=== PATIENT | female | born 1950 | race African-American/Black ===

== ENCOUNTER 2016-06-09 02:44 | Emergency (ER) | payer MEDICARE, MEDICAID ==
[~2016-06-09] VITALS: Ht 154.9 cm; Wt 68.0 kg
[2016-06-09 02:47] VITALS: BP 147/84; PULSE 74; RESP 16; TEMP 98.3; O2SAT 100
[2016-06-09 04:20] LABS: AUTOMATED NEUTROPHIL # 5.3 TH/MM3 (1.8-7.7); BASOPHIL % 0.4 % (0.0-2.0); EOSINOPHIL # 0.1 TH/MM3 (0-0.4); EOSINOPHIL % 0.8 % (0.0-4.0); HEMATOCRIT 39.2 % (35.0-46.0); HEMO FLAGS DIFF FINAL; LYMPH % 27.7 % (9.0-44.0); LYMPHOCYTE # 2.3 TH/MM3 (1.0-4.8); MEAN CELL VOLUME 77.4 FL (80.0-100.0); MEAN CORPUSCULAR HEMOGLOBIN 26.1 PG (27.0-34.0); MEAN CORPUSCULAR HGB CONC 33.8 % (32.0-36.0); MONO % 7.7 % (0.0-8.0); NEUT % 63.4 % (16.0-70.0); PLATELET COUNT 225 TH/MM3 (150-450); RED BLOOD COUNT 5.07 MIL/MM3 (4.00-5.30); RED CELL DISTRIBUTION WIDTH 15.3 % (11.6-17.2); WHITE BLOOD COUNT 8.4 TH/MM3 (4.0-11.0)
--- NOTE | 2016-06-09 04:20 | PD ---
HPI Chief Complaint: Syncope/Near-Syncope Time Seen by Provider: 04:06 Travel History International Travel<30 days: No Contact w/Intl Traveler<30days: No Traveled to known affect area: No History of Present Illness HPI The patient is a 66 year old female who presents to the [facility] emergency department with a history of reportedly having lightheaded sensation with near syncopal events 5 throughout the day today. She denies having any chest pain, chest pressure, or shortness of breath. She denies hitting her head or losing consciousness that she is aware of. She denies having any new extremity pain, however she reports that she does have right thigh pain related to a fall 3 weeks ago. She reports that she was evaluated for this and prescribed ibuprofen. The patient reports that she recently moved to the area from [place]. She has not established with a new primary care doctor. The patient reports that over the last few days with weather changes she has had a dry cough. She denies any other congestion. She also reports that over the last 2 days she's had diarrhea 2-3 times per day. She denies any blood in her stool or black or tarry stools. The patient denies any recent fevers, neck pain, chest pain, shortness of breath, abdominal pain, vomiting, urinary symptoms, or neurologic symptoms. [facility] Past Medical History Narrative Medical The patient's past medical history is significant for hypertension, recent history of a fall 3 weeks ago with right leg pain. ?: Not Past Surgical History Narrative Surgical The patient's past surgical history is reportedly none. Social History Alcohol Use: No Tobacco Use: No Substance Use: No Allergies-Medications (Allergen,Severity, Reaction): Coded Allergies: No Known Allergies (Unverified , 06/09/16) Reported Meds & Prescriptions Reported Meds & Active Scripts Active No Active Prescriptions or Reported Medications Narrative Medication Ibuprofen when necessary Review of Systems Except as stated in HPI: all other systems reviewed are Neg General / Constitutional: No: Fever Eyes: No: Visual changes HENT: Positive: Lightheadedness, No: Headaches Cardiovascular: Positive: Syncope, No: Chest Pain or Discomfort, Dyspnea on exertion Respiratory: Positive: Cough, No: Shortness of Breath Gastrointestinal: Positive: Diarrhea, Changes in Bowel Habits, No: Nausea, Vomiting, Abdominal Pain Genitourinary: No: Dysuria Musculoskeletal: Positive: Myalgias, Pain Skin: No Rash Neurologic: No: Weakness, Focal Abnormalities, Change in Mentation, Slurred Speech, Sensory Disturbance Psychiatric: No: Depression Endocrine: No: Polydipsia Hematologic/Lymphatic: No: Easy Bruising Physical Exam Narrative General: The patient is a well-developed well-nourished female in no acute distress. Head and Neck exam: Head is normocephalic atraumatic. Eyes: Pupils are equal round and reactive to light. Nose: Midline septum with pink mucous membranes Mouth: Dentition unremarkable. Moist mucus membranes. Posterior oropharynx is not erythematous. No tonsillar hypertrophy. Uvula midline. Airway patent. Neck: No palpable lymphadenopathy. No nuchal rigidity. No thyromegaly. Cardiovascular: Regular rate and rhythm without murmurs, gallops, or rubs. No pulse deficit to the extremities. Lungs: Clear to auscultation bilaterally. No wheezes, rhonchi, or rales. Abdomen: Soft, without tenderness to palpation in all 4 quadrants of the abdomen. No guarding, rebound, or rigidity. Normal bowel sounds are audible. Extremities: No clubbing or cyanosis. The patient has 1+ nonpitting edema bilateral lower extremities. No calf pain on palpation. The patient reports that her edema is chronic and unchanged. 2+ pulses in all 4 extremities. Back: No spinous process tenderness to palpation. No costovertebral angle tenderness to palpation. Neurologic Exam: Cranial nerves 2-12 were intact on exam. Strength is 5/5 in all 4 extremities. No sensory deficits noted. Skin Exam: No rash noted. Intact skin that is warm and dry. Data Data Last Documented VS Vital Signs Date Time Temp Pulse Resp B/P Pulse Ox O2 Delivery O2 Flow Rate FiO2 06/09/16 04:26 67 16 120/64 75 18 127/79 80 18 120/70 06/09/16 04:24 100 Room Air 06/09/16 02:47 98.3 Orders Electrocardiogram (06/09/16 03:08) Complete Blood Count With Diff (06/09/16 03:08) Comprehensive Metabolic Panel (06/09/16 03:08) Iv Access Insert/Monitor (06/09/16 03:08) Creatine Kinase (Cpk) (06/09/16 04:21) Ckmb (Isoenzyme) Profile (06/09/16 04:21) Troponin I (06/09/16 04:21) B-Type Natriuretic Peptide (06/09/16 04:21) D-Dimer (06/09/16 04:21) Chest, Single Ap (06/09/16 04:21) Ct Brain W/O Iv Contrast(Rout) (06/09/16 04:21) Ecg Monitoring (06/09/16 04:21) Oximetry (06/09/16 04:21) Orthostatic Vital Signs (06/09/16 04:21) Sodium Chlor 0.9% 1000 Ml Inj (Ns 1000 M (06/09/16 04:30) CKMB (06/09/16 03:45) CKMB% (06/09/16 03:45) Sodium Chlorid 0.9% 500 Ml Inj (Ns 500 M (06/09/16 06:00) Oral Rehydration (06/09/16 05:54) Labs Laboratory Tests Test 06/09/16 06/09/16 03:45 04:40 White Blood Count 8.4 TH/MM3 Red Blood Count 5.07 MIL/MM3 Hemoglobin 13.2 GM/DL Hematocrit 39.2 % Mean Corpuscular Volume 77.4 FL Mean Corpuscular Hemoglobin 26.1 PG Mean Corpuscular Hemoglobin 33.8 % Concent Red Cell Distribution Width 15.3 % Platelet Count 225 TH/MM3 Mean Platelet Volume 8.9 FL Neutrophils (%) (Auto) 63.4 % Lymphocytes (%) (Auto) 27.7 % Monocytes (%) (Auto) 7.7 % Eosinophils (%) (Auto) 0.8 % Basophils (%) (Auto) 0.4 % Neutrophils # (Auto) 5.3 TH/MM3 Lymphocytes # (Auto) 2.3 TH/MM3 Monocytes # (Auto) 0.6 TH/MM3 Eosinophils # (Auto) 0.1 TH/MM3 Basophils # (Auto) 0.0 TH/MM3 CBC Comment DIFF FINAL Differential Comment Sodium Level 139 MEQ/L Potassium Level 4.1 MEQ/L Chloride Level 102 MEQ/L Carbon Dioxide Level 27.5 MEQ/L Anion Gap 10 MEQ/L Blood Urea Nitrogen 23 MG/DL Creatinine 1.24 MG/DL Estimat Glomerular Filtration 53 ML/MIN Rate Random Glucose 91 MG/DL Calcium Level 9.2 MG/DL Total Bilirubin 0.6 MG/DL Aspartate Amino Transf 22 U/L (AST/SGOT) Alanine Aminotransferase 24 U/L (ALT/SGPT) Alkaline Phosphatase 87 U/L Total Creatine Kinase 154 U/L Creatine Kinase MB 2.9 NG/ML Troponin I LESS THAN 0.02 NG/ML Total Protein 8.5 GM/DL Albumin 3.6 GM/DL D-Dimer Quantitative (PE/DVT) 0.43 MG/L FEU B-Type Natriuretic Peptide 6 PG/ML MDM Medical Decision Making Medical Screen Exam Complete: Yes Emergency Medical Condition: Yes Medical Record Reviewed: Yes Interpretation(s) Last Impressions Head CT 06/09/16420 Signed Impressions: Service Date/Time: Thursday, June 09, 2016 05:22 - CONCLUSION: 1. No acute intracranial abnormality. 2. Minimal left sphenoid sinus disease. Marbin Dolan MD Chest X-Ray 06/09/16420 Signed Impressions: Service Date/Time: Thursday, June 09, 2016 04:32 - CONCLUSION: No acute disease. Marbin Dolan MD Differential Diagnosis Orthostasis, versus vasovagal syncope, versus dehydration, versus electrolyte abnormality, versus cardiac arrhythmia, versus pneumonia, versus sepsis Narrative Course During the course of the patients emergency department visit, the patients history, examination, and differential diagnosis were reviewed with the patient. The patient had IV access obtained and blood work sent for analysis. The patient was placed on a medication assistant with oximetry and blood pressure monitoring. An EKG was done. Orthostatic vital signs were collected. The patient was not orthostatic. The patient was provided normal saline 1 L IV fluid bolus. The patients laboratory studies were reviewed and remarkable for a white count of 8.4, hemoglobin 13.2, platelets 225 with a normal differential. CMP is remarkable for a BUN of 23, creatinine 1.24, CPK 154, troponin I less than 0.02 , BNP is 6, d-dimer is 0.438 decreased the likelihood of pulmonary embolism in this patient with no other significant risk factors. Radiology studies were reviewed and remarkable for a chest x-ray that is unremarkable. I suspect that the patient's lightheaded sensation is related to her recent diarrhea and under hydration. The patient was given an another fluid bolus of normal saline 500 mL. The patient was started on oral rehydration therapy. The patient will be discharged home. The patient is resting comfortably and feels better, is alert and in no distress. The patients results and examination findings were discussed with the patient. The repeat examination is unremarkable and benign. The history, exam, diagnostic testing, and current condition do not suggest any significant pathology to warrant further testing, continued ED treatment, admission, or surgical evaluation at this point. The vital signs have been stable. The patient does not have uncontrollable pain, intractable vomiting, or other significant symptoms. The patient's condition is stable and appropriate for discharge. The patient will pursue further outpatient evaluation with a primary care physician or other designated or consulting physician as indicated in the discharge instructions. The patient expressed understanding and was agreeable with this plan. Diagnosis Primary Impression: Dehydration Additional Impression: Diarrhea Qualified Code: R19.7 - Diarrhea, unspecified type Referrals: Belen Londono MD Patient Instructions: Acute Diarrhea (ED), Dehydration (ED), General Instructions Additional Instructions: The patient is instructed to push fluids and get plenty of rest. The patient is instructed to push fluids with an electrolyte rich solution such as Gatorade or Pedialyte. Scripts No Active Prescriptions or Reported Meds Disposition: 01 DISCHARGE HOME Condition: Stable Karli Rudolph MD Jun 09, 2016 04:20
[2016-06-09 04:24] VITALS: RESP 22; O2SAT 100
[2016-06-09 04:26] VITALS: BP_SYST 120; BP_SYST 127; BP_DIAS 64; BP_DIAS 70; BP_DIAS 79; RESP 16; RESP 18
[2016-06-09] MEDS ORDERED: SODIUM CHLOR 0.9% 1000 ML INJ 1,000 ML IV ONE (04:30)
[2016-06-09 04:43] LABS: ALKALINE PHOSPHATASE 87 U/L (45-117); TOTAL BILIRUBIN ADULT 0.6 MG/DL (0.2-1.0)
[2016-06-09 04:58] LABS: ALT (GPT) 24 U/L (10-53); ANION GAP 10 MEQ/L (5-15); AST (GOT) 22 U/L (15-37); BICARBONATE 27.5 MEQ/L (21.0-32.0); BLOOD UREA NITROGEN 23 MG/DL (7-18); CHLORIDE 102 MEQ/L (98-107); GLOMERULAR FILTRATION RATE 53 ML/MIN (>89); POTASSIUM 4.1 MEQ/L (3.5-5.1); SODIUM (NA) 139 MEQ/L (136-145)
[2016-06-09 05:40] LABS: CREATINE KINASE 154 U/L (26-192)
--- NOTE | 2016-06-09 05:40 | RADRPT ---
EXAM DATE/TIME: 06/09/2016 04:32 [facility] COMPARISON: No previous studies available for comparison. INDICATIONS : Syncope. MEDICAL HISTORY : None. SURGICAL HISTORY : None. ENCOUNTER: Initial ACUITY: 1 day PAIN SCORE: 0/10 LOCATION: Bilateral chest FINDINGS: A single view of the chest demonstrates the lungs to be symmetrically aerated without evidence of mas s, infiltrate or effusion. The cardiomediastinal contours are unremarkable. Osseous structures are intact. CONCLUSION: No acute disease. Marbin Dolan MD on June 09, 2016 at 5:38 Board Certified Radiologist. This report was verified electronically.
--- NOTE | 2016-06-09 05:47 | RADRPT ---
EXAM DATE/TIME: 06/09/2016 05:22 [facility] COMPARISON: No previous studies available for comparison. INDICATIONS : Syncopal episode RADIATION DOSE: 38.73 CTDIvol (mGy) MEDICAL HISTORY : None SURGICAL HISTORY : None. ENCOUNTER: Initial ACUITY: 1 day PAIN SCALE: 0/10 LOCATION: Bilateral cranial TECHNIQUE: Multiple contiguous axial images were obtained of the head. Using automated exposure control and adj ustment of the mA and/or kV according to patient size, radiation dose was kept as low as reasonably a chievable to obtain optimal diagnostic quality images. FINDINGS: CEREBRUM: The ventricles are normal for age. No evidence of midline shift, mass lesion, hemorrhage or acute in farction. No extra-axial fluid collections are seen. POSTERIOR FOSSA: The cerebellum and brainstem are intact. The 4th ventricle is midline. The cerebellopontine angle i s unremarkable. EXTRACRANIAL: The visualized portion of the orbits is intact. Minimal left sphenoid sinus disease. SKULL: The calvaria is intact. No evidence of skull fracture. CONCLUSION: 1. No acute intracranial abnormality. 2. Minimal left sphenoid sinus disease. Marbin Dolan MD on June 09, 2016 at 5:45 Board Certified Radiologist. This report was verified electronically.
[2016-06-09 05:53] LABS: CKMB 2.9 NG/ML (0.5-3.6)
[2016-06-09] MEDS ORDERED: SODIUM CHLORID 0.9% 500 ML INJ 500 ML IV ONE (06:00)
--- NOTE | 2016-06-09 11:12 | EKG ---
Date Performed: 06/09/2016 Time Performed: 04:19:06 PTAGE: 66 years EKG: Sinus rhythm NORMAL ECG NO PREVIOUS TRACING DOCTOR: Sean Vaughn Interpretating Date/Time 06/09/2016 11:09:41
== END 2016-06-09 08:43 | disposition home or self-care (01) ==
LOC: NEPE 02:44 → NEPD 08:43
DX: E86.0 Dehydration (principal); R19.7 Diarrhea, unspecified; R55 Syncope and collapse; M79.651 Pain in right thigh; R05 Cough; I10 Essential (primary) hypertension
CPT/HCPCS: 70450; 71010; 80053; 82550; 82552; 83880; 84484; 85025; 85379; 93005; 96360; 96361; 99284; J7030; J7040

== ENCOUNTER 2017-05-05 10:36 | Emergency (ER) | payer MEDICARE, OTHER ==
[~2017-05-05] VITALS: Ht 154.9 cm; Wt 70.0 kg
[2017-05-05 10:37] VITALS: BP 125/74; PULSE 81; RESP 16; TEMP 98.4; O2SAT 93
--- NOTE | 2017-05-05 10:51 | PD ---
HPI Chief Complaint: Anxiety Time Seen by Provider: 10:49 Travel History International Travel<30 days: No Contact w/Intl Traveler<30days: No Traveled to known affect area: No History of Present Illness HPI 67-year-old female patient presents to the ER today, states that she has had a in the family of 70 close to her recently, and since then has been having anxiety, feeling depressed, having suicidal thoughts. She does not have exact plans. She denies any other issues, just states that she is not feeling well, feels like she cannot concentrate at times. She is requesting psychiatric evaluation. Modifying Factors: None Associated Signs & Symptoms: Anxiety, depression, suicidal thoughts Risk Factors: None PFSH Past Medical History Immunizations Current: Yes ?: Not Social History Alcohol Use: No Tobacco Use: No Substance Use: No Allergies-Medications (Allergen,Severity, Reaction): Coded Allergies: No Known Allergies (Unverified Adverse Reaction, Unknown, 05/05/17) Reported Meds & Prescriptions Reported Meds & Active Scripts Active No Active Prescriptions or Reported Medications Review of Systems Except as stated in HPI: all other systems reviewed are Neg Physical Exam Narrative GENERAL: Well-developed elderly -[place] female patient currently in mild distress. Awake and oriented 3. SKIN: Focused skin assessment warm/dry. HEAD: Atraumatic. Normocephalic. EYES: Pupils equal and round. No scleral icterus. No injection or drainage. ENT: No nasal bleeding or discharge. Mucous membranes pink and moist. NECK: Trachea midline. No JVD. CARDIOVASCULAR: Regular rate and rhythm. No murmur appreciated. RESPIRATORY: No accessory muscle use. Clear to auscultation. Breath sounds equal bilaterally. GASTROINTESTINAL: Abdomen soft, non-tender, nondistended. Hepatic and splenic margins not palpable. MUSCULOSKELETAL: No obvious deformities. No clubbing. No cyanosis. No edema. NEUROLOGICAL: Awake and alert. No obvious cranial nerve deficits. Motor grossly within normal limits. Normal speech. PSYCHIATRIC: Appropriate mood and flat affect; insight and judgment normal. Data Data Last Documented VS Vital Signs Date Time Temp Pulse Resp B/P (MAP) Pulse Ox O2 Delivery O2 Flow Rate FiO2 05/05/17 10:55 78 16 101/66 (78) 99 Room Air 05/05/17 10:37 98.4 Orders Orders Complete Blood Count With Diff (05/05/17 10:45) Comprehensive Metabolic Panel (05/05/17 10:45) Psych Screen (05/05/17 10:45) Drug Screen, Random Urine (05/05/17 10:45) Alcohol (Ethanol) (05/05/17 10:45) Potassium Chloride (Kcl) (05/05/17 12:30) Labs Laboratory Tests Test 05/05/17 10:58 White Blood Count 6.7 TH/MM3 Red Blood Count 4.97 MIL/MM3 Hemoglobin 12.8 GM/DL Hematocrit 40.1 % Mean Corpuscular Volume 80.8 FL Mean Corpuscular Hemoglobin 25.9 PG Mean Corpuscular Hemoglobin Concent 32.0 % Red Cell Distribution Width 14.7 % Platelet Count 204 TH/MM3 Mean Platelet Volume 8.9 FL Neutrophils (%) (Auto) 76.7 % Lymphocytes (%) (Auto) 17.8 % Monocytes (%) (Auto) 4.9 % Eosinophils (%) (Auto) 0.5 % Basophils (%) (Auto) 0.1 % Neutrophils # (Auto) 5.1 TH/MM3 Lymphocytes # (Auto) 1.2 TH/MM3 Monocytes # (Auto) 0.3 TH/MM3 Eosinophils # (Auto) 0.0 TH/MM3 Basophils # (Auto) 0.0 TH/MM3 CBC Comment DIFF FINAL Differential Comment Blood Urea Nitrogen 12 MG/DL Creatinine 0.97 MG/DL Random Glucose 130 MG/DL Total Protein 7.2 GM/DL Albumin 3.0 GM/DL Calcium Level 8.4 MG/DL Alkaline Phosphatase 69 U/L Aspartate Amino Transf (AST/SGOT) 18 U/L Alanine Aminotransferase (ALT/SGPT) 19 U/L Total Bilirubin 0.6 MG/DL Sodium Level 141 MEQ/L Potassium Level 3.1 MEQ/L Chloride Level 108 MEQ/L Carbon Dioxide Level 23.1 MEQ/L Anion Gap 10 MEQ/L Estimat Glomerular Filtration Rate 70 ML/MIN Urine Opiates Screen NEG Urine Barbiturates Screen NEG Urine Amphetamines Screen NEG Urine Benzodiazepines Screen NEG Urine Cocaine Screen NEG Urine Cannabinoids Screen NEG Ethyl Alcohol Level LESS THAN 3 MG/DL MDM Medical Decision Making Medical Screen Exam Complete: Yes Emergency Medical Condition: Yes Medical Record Reviewed: Yes Interpretation(s) Laboratory Tests Test 05/05/17 10:58 Mean Corpuscular Hemoglobin 25.9 PG (27.0-34.0) Neutrophils (%) (Auto) 76.7 % (16.0-70.0) Random Glucose 130 MG/DL (74-106) Albumin 3.0 GM/DL (3.4-5.0) Calcium Level 8.4 MG/DL (8.5-10.1) Potassium Level 3.1 MEQ/L (3.5-5.1) Chloride Level 108 MEQ/L (98-107) Estimat Glomerular Filtration Rate 70 ML/MIN (>89) Differential Diagnosis Depression, anxiety, suicidal ideation, evaluation for medical clearance Narrative Course Lab work shows mild decrease in potassium and by mouth potassium was given in the ER. Vital signs are stable in the ER. My plan would be to medically clear her for psychiatric evaluation. Diagnosis Primary Impression: Depression with suicidal ideation Additional Impression: Hypokalemia Scripts No Active Prescriptions or Reported Meds Condition: Stable Alcides Dillard MD May 05, 2017 10:51
[2017-05-05 10:55] VITALS: BP 101/66; PULSE 78; RESP 16; O2SAT 99
[2017-05-05 11:50] LABS: AUTOMATED NEUTROPHIL # 5.1 TH/MM3 (1.8-7.7); BASOPHIL % 0.1 % (0.0-2.0); EOSINOPHIL % 0.5 % (0.0-4.0); HEMATOCRIT 40.1 % (35.0-46.0); HEMO FLAGS DIFF FINAL; LYMPH % 17.8 % (9.0-44.0); LYMPHOCYTE # 1.2 TH/MM3 (1.0-4.8); MEAN CELL VOLUME 80.8 FL (80.0-100.0); MEAN CORPUSCULAR HEMOGLOBIN 25.9 PG (27.0-34.0); MONO % 4.9 % (0.0-8.0); NEUT % 76.7 % (16.0-70.0); PLATELET COUNT 204 TH/MM3 (150-450); RED BLOOD COUNT 4.97 MIL/MM3 (4.00-5.30); RED CELL DISTRIBUTION WIDTH 14.7 % (11.6-17.2); WHITE BLOOD COUNT 6.7 TH/MM3 (4.0-11.0)
[2017-05-05 12:14] LABS: ANION GAP 10 MEQ/L (5-15); AST (GOT) 18 U/L (15-37); BICARBONATE 23.1 MEQ/L (21.0-32.0); BLOOD UREA NITROGEN 12 MG/DL (7-18); CHLORIDE 108 MEQ/L (98-107); GLOMERULAR FILTRATION RATE 70 ML/MIN (>89); POTASSIUM 3.1 MEQ/L (3.5-5.1); SODIUM (NA) 141 MEQ/L (136-145)
[2017-05-05 12:16] LABS: ALKALINE PHOSPHATASE 69 U/L (45-117); ALT (GPT) 19 U/L (10-53); TOTAL BILIRUBIN ADULT 0.6 MG/DL (0.2-1.0)
[2017-05-05 12:20] LABS: ALCOHOL LESS THAN 3 MG/DL (0-5)
[2017-05-05] MEDS ORDERED: POTASSIUM CHLORIDE 10 MEQ CONTROLLED RELEASE TAB PO ONE (12:30)
[2017-05-05 15:18] VITALS: BP 103/62; PULSE 58; RESP 18; TEMP 98.5; O2SAT 97
[2017-05-05 18:38] VITALS: BP 135/65; PULSE 50; RESP 17; O2SAT 100
--- NOTE | 2017-05-05 19:53 | PD ---
History of Present Illness Chief Complaint: Anxiety Time Seen by Provider: 19:15 Travel History International Travel<30 Days: No Contact w/Intl Traveler<30days: No Known affected area: No Legal Status Legal Status: Voluntary History of Present Illness: History of Present Illness HPI 67-year-old female with no reported psychiatric history who patient presents to the ER on a voluntary basis. As per Ed documentation " states that she has had a in the family of 70 close to her recently, and since then has been having anxiety, feeling depressed, having suicidal thoughts. She does not have exact plans. She denies any other issues, just states that she is not feeling well, feels like she cannot concentrate at times. She is requesting psychiatric evaluation". An initial psychiatric screening was conducted , patient was monitored in secure environment with no suicidality. EMR reviewed. No previous contact with [facility] psychiatry. Current toxicology is negative for all substances tested here. Patient is seen in her room she is resting comfortably. Patient was explained the purpose of my questioning. She states" I haven't had my dinner yet so I am not in a talk to anyone else today." I asked her if she had to help led anybody no and she said no and once again she stated that she did not want to speak with anyone else today and that she wanted to leave. I asked another staff member, Karli MOLINA, to assist patient in getting patient something to eat. The patient refuse and stated she was not in the speak with anyone else and that she wanted to leave. Patient once again was advised on the purpose of my questioning and she refused to engage. Patient was asked if she had any thoughts of harming herself or anyone else and she replied "no". Patient does not appear to be responding to internal stimuli at this time. PFSH Past Medical History Medical History: Denies Significant Hx Immunizations Current: Yes Influenza Vaccination: No ?: Not Past Surgical History Surgical History: No Previous Surgery Psychiatric History Psychiatric History Hx Psychiatric Treatment: Asked per psych psychiatric screen or none reported. History of Inpatient Treatment: No Guns or firearms in home: No Social History female. Lives with roommate. Works at [employer]. Hx Alcohol Use: Yes (OCC) Hx Tobacco Use: No Hx Substance Use: No Substance Use Type: Alcohol Other Substances Used: "I drink alcohol sometimes." Hx of Substance Use Treatment: No Family Psychiatric History Unknown Allergies-Medications (Allergen,Severity, Reaction): Coded Allergies: No Known Allergies (Unverified Adverse Reaction, Unknown, 05/05/17) Reported Meds & Prescriptions Reported Meds & Active Scripts Active No Active Prescriptions or Reported Medications Review of Systems ROS Limitations: Uncooperative Mental Status Examination Appearance: Appropriate (wearing [facility]) Consciousness: Alert Orientation: x4 (appears fully oriented) Motor Activity: Normal gait Speech: Unremarkable Language: Adequate Fund of Knowledge: Adequate Attention and Concentration: Adequate Memory: Unremarkable (not tested) Mood: Angry Affect: Other (congruent to mood) Thought Process & Associations: Intact Thought Content: Appropriate Hallucination Type: None, Other (does not appear to be responding to any stimuli) Delusion Type: None Suicidal Ideation: No Suicidal Plan: No Suicidal Intention: No Homicidal Ideation: No Homicidal Plan: No Homicidal Intention: No Insight: Poor Judgment: Impulsive [facility] Medical Decision Making Assessment/Plan 67-year-old female with no reported psychiatric history who patient presents to the ER on a voluntary basis. As per Ed documentation " states that she has had a in the family of 70 close to her recently, and since then has been having anxiety, feeling depressed, having suicidal thoughts. Patient was monitored in secure environment and presented no suicidality, does not appear to be psychotic, or manic. She is requesting discharge at this time and wishes not to proceed with the evaluation process. She is questioned regarding her suicidality and in front of staff members and denies that she has any intent to harm herself. Patient does not meet criteria for [place] act. She is requesting to be discharged and therefore will be release. She will be provided community resources. Psychiatrically clear for discharge. Orders Orders Complete Blood Count With Diff (05/05/17 10:45) Comprehensive Metabolic Panel (05/05/17 10:45) Psych Screen (05/05/17 10:45) Drug Screen, Random Urine (05/05/17 10:45) Alcohol (Ethanol) (05/05/17 10:45) Potassium Chloride (Kcl) (05/05/17 12:30) Results Vital Signs Date Time Temp Pulse Resp B/P (MAP) Pulse Ox O2 Delivery O2 Flow Rate FiO2 05/05/17 18:38 50 17 135/65 (88) 100 Room Air 05/05/17 15:18 98.5 58 18 103/62 (76) 97 Room Air 05/05/17 10:55 78 16 101/66 (78) 99 Room Air 05/05/17 10:51 16 05/05/17 10:38 (91) 05/05/17 10:37 98.4 81 16 125/74 (91) 93 Room Air Laboratory Tests Test 05/05/17 10:58 White Blood Count 6.7 Red Blood Count 4.97 Hemoglobin 12.8 Hematocrit 40.1 Mean Corpuscular Volume 80.8 Mean Corpuscular Hemoglobin 25.9 Mean Corpuscular Hemoglobin Concent 32.0 Red Cell Distribution Width 14.7 Platelet Count 204 Mean Platelet Volume 8.9 Neutrophils (%) (Auto) 76.7 Lymphocytes (%) (Auto) 17.8 Monocytes (%) (Auto) 4.9 Eosinophils (%) (Auto) 0.5 Basophils (%) (Auto) 0.1 Neutrophils # (Auto) 5.1 Lymphocytes # (Auto) 1.2 Monocytes # (Auto) 0.3 Eosinophils # (Auto) 0.0 Basophils # (Auto) 0.0 CBC Comment DIFF FINAL Differential Comment Blood Urea Nitrogen 12 Creatinine 0.97 Random Glucose 130 Total Protein 7.2 Albumin 3.0 Calcium Level 8.4 Alkaline Phosphatase 69 Aspartate Amino Transf (AST/SGOT) 18 Alanine Aminotransferase (ALT/SGPT) 19 Total Bilirubin 0.6 Sodium Level 141 Potassium Level 3.1 Chloride Level 108 Carbon Dioxide Level 23.1 Anion Gap 10 Estimat Glomerular Filtration Rate 70 Urine Opiates Screen NEG Urine Barbiturates Screen NEG Urine Amphetamines Screen NEG Urine Benzodiazepines Screen NEG Urine Cocaine Screen NEG Urine Cannabinoids Screen NEG Ethyl Alcohol Level LESS THAN 3 Diagnosis Primary Impression: Adjustment disorder Psychiatrically Cleared: Yes Med/ Other Pt Specific Info: No Meds Exist/No RX given Prescriptions No Active Prescriptions or Reported Meds Disposition: 01 DISCHARGE HOME Condition: Stable Problem Qualifiers Primary Impression: Adjustment disorder Qualified Codes: F43.21 - Adjustment disorder with depressed mood Radha Keith May 05, 2017 19:53
--- NOTE | 2017-05-05 20:17 | PD ---
Physical Exam Date Seen by Provider: May 05, 2017 Time Seen by Provider: 20:17 Data Data Last Documented VS Vital Signs Date Time Temp Pulse Resp B/P (MAP) Pulse Ox O2 Delivery O2 Flow Rate FiO2 05/05/17 18:38 50 17 135/65 (88) 100 Room Air 05/05/17 15:18 98.5 Orders Orders Complete Blood Count With Diff (05/05/17 10:45) Comprehensive Metabolic Panel (05/05/17 10:45) Psych Screen (05/05/17 10:45) Drug Screen, Random Urine (05/05/17 10:45) Alcohol (Ethanol) (05/05/17 10:45) Potassium Chloride (Kcl) (05/05/17 12:30) Ed Discharge Order (05/05/17 20:16) Labs Laboratory Tests Test 05/05/17 10:58 White Blood Count 6.7 TH/MM3 Red Blood Count 4.97 MIL/MM3 Hemoglobin 12.8 GM/DL Hematocrit 40.1 % Mean Corpuscular Volume 80.8 FL Mean Corpuscular Hemoglobin 25.9 PG Mean Corpuscular Hemoglobin Concent 32.0 % Red Cell Distribution Width 14.7 % Platelet Count 204 TH/MM3 Mean Platelet Volume 8.9 FL Neutrophils (%) (Auto) 76.7 % Lymphocytes (%) (Auto) 17.8 % Monocytes (%) (Auto) 4.9 % Eosinophils (%) (Auto) 0.5 % Basophils (%) (Auto) 0.1 % Neutrophils # (Auto) 5.1 TH/MM3 Lymphocytes # (Auto) 1.2 TH/MM3 Monocytes # (Auto) 0.3 TH/MM3 Eosinophils # (Auto) 0.0 TH/MM3 Basophils # (Auto) 0.0 TH/MM3 CBC Comment DIFF FINAL Differential Comment Blood Urea Nitrogen 12 MG/DL Creatinine 0.97 MG/DL Random Glucose 130 MG/DL Total Protein 7.2 GM/DL Albumin 3.0 GM/DL Calcium Level 8.4 MG/DL Alkaline Phosphatase 69 U/L Aspartate Amino Transf (AST/SGOT) 18 U/L Alanine Aminotransferase (ALT/SGPT) 19 U/L Total Bilirubin 0.6 MG/DL Sodium Level 141 MEQ/L Potassium Level 3.1 MEQ/L Chloride Level 108 MEQ/L Carbon Dioxide Level 23.1 MEQ/L Anion Gap 10 MEQ/L Estimat Glomerular Filtration Rate 70 ML/MIN Urine Opiates Screen NEG Urine Barbiturates Screen NEG Urine Amphetamines Screen NEG Urine Benzodiazepines Screen NEG Urine Cocaine Screen NEG Urine Cannabinoids Screen NEG Ethyl Alcohol Level LESS THAN 3 MG/DL [facility] Supervised Visit with [facility]: No Narrative Course 67-year-old female initially presented to the ED for voluntary psychiatric evaluation. She was initially evaluated by Dr. Oliveira and medically cleared. She was evaluated by the psych nurse,Radha Keith psychiatry. She was diagnosed with adjustment disorder. She is to follow up on an outpatient basis. She is stable and discharged home. Diagnosis Primary Impression: Adjustment disorder Qualified Codes: F43.21 - Adjustment disorder with depressed mood Referrals: Primary Care Physician Psychiatrist Patient Instructions: General Instructions Scripts No Active Prescriptions or Reported Meds Disposition: DISCHARGE HOME Condition: Stable Kasey Aguilar May 05, 2017 20:17
== END 2017-05-05 20:27 | disposition home or self-care (01) ==
LOC: NEPC 10:36 → NEPJ 20:27
DX: F43.21 Adjustment disorder with depressed mood (principal); E87.6 Hypokalemia
CPT/HCPCS: 80053; 80307; 85025; 99284

== ENCOUNTER 2017-08-06 08:42 | Emergency (ER) | payer MEDICARE, OTHER ==
[~2017-08-06] VITALS: Ht 154.9 cm; Wt 70.0 kg
[2017-08-06 09:00] VITALS: BP 136/73; PULSE 91; RESP 18; TEMP 99; O2SAT 99
[2017-08-06 10:20] LABS: AUTOMATED NEUTROPHIL # 4.8 TH/MM3 (1.8-7.7); BASOPHIL % 0.2 % (0.0-2.0); EOSINOPHIL % 0.2 % (0.0-4.0); HEMATOCRIT 38.3 % (35.0-46.0); HEMOGLOBIN 12.5 GM/DL (11.6-15.3); LYMPH % 19.5 % (9.0-44.0); LYMPHOCYTE # 1.3 TH/MM3 (1.0-4.8); MEAN CORPUSCULAR HEMOGLOBIN 26.2 PG (27.0-34.0); MEAN CORPUSCULAR HGB CONC 32.7 % (32.0-36.0); MEAN PLATELET VOLUME 8.4 FL (7.0-11.0); MONO % 9.6 % (0.0-8.0); MONOCYTE # 0.7 TH/MM3 (0-0.9); NEUT % 70.5 % (16.0-70.0); PLATELET COUNT 217 TH/MM3 (150-450); RED BLOOD COUNT 4.78 MIL/MM3 (4.00-5.30); RED CELL DISTRIBUTION WIDTH 14.5 % (11.6-17.2); WHITE BLOOD COUNT 6.8 TH/MM3 (4.0-11.0)
[2017-08-06 10:38] LABS: ALBUMIN 3.3 GM/DL (3.4-5.0); ALT (GPT) 68 U/L (10-53); AST (GOT) 28 U/L (15-37); BICARBONATE 26.7 MEQ/L (21.0-32.0); BLOOD UREA NITROGEN 19 MG/DL (7-18); CALCIUM 8.8 MG/DL (8.5-10.1); CHLORIDE 108 MEQ/L (98-107); CREATININE 0.93 MG/DL (0.50-1.00); GLOMERULAR FILTRATION RATE 73 ML/MIN (>89); GLUCOSE,RANDOM 89 MG/DL (74-106); SODIUM (NA) 142 MEQ/L (136-145)
[2017-08-06 10:47] LABS: ALKALINE PHOSPHATASE 106 U/L (45-117); TOTAL BILIRUBIN ADULT 0.5 MG/DL (0.2-1.0); TOTAL PROTEIN 7.6 GM/DL (6.4-8.2)
--- NOTE | 2017-08-06 11:51 | PD ---
HPI Chief Complaint: Suicide Ideation/Attempt Time Seen by Provider: 09:33 Travel History International Travel<30 days: No Contact w/Intl Traveler<30days: No Traveled to known affect area: No History of Present Illness HPI 67-year-old -[place] female presents the emergency department with history of 3 weeks of suicidal ideation. Patient denies specific plan. She has no medical complaints. Patient denies drug or alcohol abuse. She has no known drug allergies. PFSH Past Medical History Immunizations Current: Yes Social History Alcohol Use: Yes (OCC) Tobacco Use: No Substance Use: No Allergies-Medications (Allergen,Severity, Reaction): Coded Allergies: No Known Allergies (Unverified Adverse Reaction, Unknown, 08/06/17) Reported Meds & Prescriptions Reported Meds & Active Scripts Active No Active Prescriptions or Reported Medications Review of Systems Except as stated in HPI: all other systems reviewed are Neg General / Constitutional: No: Fever Eyes: No: Visual changes HENT: No: Headaches Cardiovascular: No: Chest Pain or Discomfort Respiratory: No: Shortness of Breath Gastrointestinal: No: Abdominal Pain Genitourinary: No: Dysuria Musculoskeletal: No: Pain Skin: No Rash Neurologic: No: Weakness Psychiatric: No: Depression Endocrine: No: Polydipsia Hematologic/Lymphatic: No: Easy Bruising Physical Exam Narrative GENERAL: Patient appears withdrawn but otherwise in no acute distress. SKIN: Warm and dry. Normal color. Normal turgor. HEAD: Atraumatic. Normocephalic. EYES: Pupils equal and round. No scleral icterus. No injection or drainage. ENT: No nasal bleeding or discharge. Mucous membranes pink and moist. Pharynx is clear. Airways patent. NECK: Trachea midline. Supple and nontender. CARDIOVASCULAR: Regular rate and rhythm. RESPIRATORY: No accessory muscle use. Clear to auscultation. Breath sounds equal bilaterally. GASTROINTESTINAL: Abdomen soft, non-tender, nondistended. Hepatic and splenic margins not palpable. MUSCULOSKELETAL: Extremities without clubbing, cyanosis, or edema. No obvious deformities. NEUROLOGICAL: Awake and alert. No obvious cranial nerve deficits. Motor grossly within normal limits. Five out of 5 muscle strength in the arms and legs. Normal speech. PSYCHIATRIC: Appropriate mood and affect; insight and judgment normal. Data Data Last Documented VS Vital Signs Date Time Temp Pulse Resp B/P (MAP) Pulse Ox O2 Delivery O2 Flow Rate FiO2 08/06/17 09:00 99.0 91 18 136/73 (94) 99 Orders Orders Complete Blood Count With Diff (08/06/17 09:34) Comprehensive Metabolic Panel (08/06/17 09:34) Thyroid Stimulating Hormone (08/06/17 09:34) Psych Screen (08/06/17 09:34) Drug Screen, Random Urine (08/06/17 09:34) Alcohol (Ethanol) (08/06/17 09:34) Labs Laboratory Tests Test 08/06/17 09:50 White Blood Count 6.8 TH/MM3 Red Blood Count 4.78 MIL/MM3 Hemoglobin 12.5 GM/DL Hematocrit 38.3 % Mean Corpuscular Volume 80.0 FL Mean Corpuscular Hemoglobin 26.2 PG Mean Corpuscular Hemoglobin Concent 32.7 % Red Cell Distribution Width 14.5 % Platelet Count 217 TH/MM3 Mean Platelet Volume 8.4 FL Neutrophils (%) (Auto) 70.5 % Lymphocytes (%) (Auto) 19.5 % Monocytes (%) (Auto) 9.6 % Eosinophils (%) (Auto) 0.2 % Basophils (%) (Auto) 0.2 % Neutrophils # (Auto) 4.8 TH/MM3 Lymphocytes # (Auto) 1.3 TH/MM3 Monocytes # (Auto) 0.7 TH/MM3 Eosinophils # (Auto) 0.0 TH/MM3 Basophils # (Auto) 0.0 TH/MM3 CBC Comment DIFF FINAL Differential Comment Blood Urea Nitrogen 19 MG/DL Creatinine 0.93 MG/DL Random Glucose 89 MG/DL Total Protein 7.6 GM/DL Albumin 3.3 GM/DL Calcium Level 8.8 MG/DL Alkaline Phosphatase 106 U/L Aspartate Amino Transf (AST/SGOT) 28 U/L Alanine Aminotransferase (ALT/SGPT) 68 U/L Total Bilirubin 0.5 MG/DL Sodium Level 142 MEQ/L Potassium Level 3.8 MEQ/L Chloride Level 108 MEQ/L Carbon Dioxide Level 26.7 MEQ/L Anion Gap 7 MEQ/L Estimat Glomerular Filtration Rate 73 ML/MIN Thyroid Stimulating Hormone 3rd Gen 2.730 uIU/ML Urine Opiates Screen NEG Urine Barbiturates Screen NEG Urine Amphetamines Screen NEG Urine Benzodiazepines Screen NEG Urine Cocaine Screen NEG Urine Cannabinoids Screen NEG Ethyl Alcohol Level LESS THAN 3 MG/DL MDM Medical Decision Making Medical Screen Exam Complete: Yes Emergency Medical Condition: Yes Differential Diagnosis Depression. Suicidal ideation. Need for psychiatric screen. Narrative Course Patient appears medically stable at time of exam. Psychiatric labs ordered as per protocol. Labs are all within normal limits. Drug screen and alcohol screening are negative. Patient is medically cleared for psychiatric evaluation. Diagnosis Primary Impression: Depression with suicidal ideation Scripts No Active Prescriptions or Reported Meds Condition: Moncho Trinh Aug 06, 2017 11:51
[2017-08-06 17:00] VITALS: BP 132/70; PULSE 76; RESP 20; O2SAT 98
[2017-08-07 00:48] VITALS: BP 165/77; PULSE 83; RESP 18; TEMP 97.6; O2SAT 100
--- NOTE | 2017-08-07 00:58 | PD ---
Physical Exam Narrative Patient was seen by medical team and psychiatric team. Data Data Last Documented VS Vital Signs Date Time Temp Pulse Resp B/P (MAP) Pulse Ox O2 Delivery O2 Flow Rate FiO2 08/07/17 01:06 08/07/17 00:48 97.6 83 18 100 Room Air Orders Orders Complete Blood Count With Diff (08/06/17 09:34) Comprehensive Metabolic Panel (08/06/17 09:34) Thyroid Stimulating Hormone (08/06/17 09:34) Psych Screen (08/06/17 09:34) Drug Screen, Random Urine (08/06/17 09:34) Alcohol (Ethanol) (08/06/17 09:34) Diet Regular Basic (08/06/17 Dinner) Ed Discharge Order (08/07/17 00:56) Labs Laboratory Tests Test 08/06/17 09:50 White Blood Count 6.8 TH/MM3 Red Blood Count 4.78 MIL/MM3 Hemoglobin 12.5 GM/DL Hematocrit 38.3 % Mean Corpuscular Volume 80.0 FL Mean Corpuscular Hemoglobin 26.2 PG Mean Corpuscular Hemoglobin Concent 32.7 % Red Cell Distribution Width 14.5 % Platelet Count 217 TH/MM3 Mean Platelet Volume 8.4 FL Neutrophils (%) (Auto) 70.5 % Lymphocytes (%) (Auto) 19.5 % Monocytes (%) (Auto) 9.6 % Eosinophils (%) (Auto) 0.2 % Basophils (%) (Auto) 0.2 % Neutrophils # (Auto) 4.8 TH/MM3 Lymphocytes # (Auto) 1.3 TH/MM3 Monocytes # (Auto) 0.7 TH/MM3 Eosinophils # (Auto) 0.0 TH/MM3 Basophils # (Auto) 0.0 TH/MM3 CBC Comment DIFF FINAL Differential Comment Blood Urea Nitrogen 19 MG/DL Creatinine 0.93 MG/DL Random Glucose 89 MG/DL Total Protein 7.6 GM/DL Albumin 3.3 GM/DL Calcium Level 8.8 MG/DL Alkaline Phosphatase 106 U/L Aspartate Amino Transf (AST/SGOT) 28 U/L Alanine Aminotransferase (ALT/SGPT) 68 U/L Total Bilirubin 0.5 MG/DL Sodium Level 142 MEQ/L Potassium Level 3.8 MEQ/L Chloride Level 108 MEQ/L Carbon Dioxide Level 26.7 MEQ/L Anion Gap 7 MEQ/L Estimat Glomerular Filtration Rate 73 ML/MIN Thyroid Stimulating Hormone 3rd Gen 2.730 uIU/ML Urine Opiates Screen NEG Urine Barbiturates Screen NEG Urine Amphetamines Screen NEG Urine Benzodiazepines Screen NEG Urine Cocaine Screen NEG Urine Cannabinoids Screen NEG Ethyl Alcohol Level LESS THAN 3 MG/DL [facility] Supervised Visit with [facility]: Yes Narrative Course Patient was seen by psychiatric team and cleared for discharge. Diagnosis Primary Impression: Depression with suicidal ideation Patient Instructions: General Instructions Departure Forms: Tests/Procedures Additional Instruction: Follow-up with local physician. Med/Other Pt SpecificInfo: No Change to Meds Scripts No Active Prescriptions or Reported Meds Disposition: DISCHARGE HOME Condition: Stable Charles Cuello MD Aug 07, 2017 00:58
== END 2017-08-07 01:11 | disposition home or self-care (01) ==
LOC: NEPD 08:42 → NEPJ 08-07 01:11
DX: F32.9 Major depressive disorder, single episode, unspecified (principal); R45.851 Suicidal ideations
CPT/HCPCS: 80053; 80307; 84443; 85025; 99283

== ENCOUNTER 2018-03-07 17:12 | Inpatient (IN) ==
--- NOTE | 2018-03-07 22:08 | ED ---
HPI General Chief Complaint: Psychiatric Symptoms Stated Complaint: psych eval Time Seen by Provider: 03/07/18 21:58 Source: patient Mode of arrival: ambulatory Limitations: no limitations History of Present Illness HPI Narrative: 67 years old this [id number] female complains of feeling suicidal. Patient states that she has history of depression and feeling suicidal today. Patient requests psychiatric evaluation. Patient denies any medical problem. Patient denies any headache. Patient denies any chest pain or shortness of breath. Patient denies abdominal pain. Patient denies any extremity injury. Patient denies any alcohol or drug abuse. Patient states that she is not taking any routine medication. complaint: Reports suicidal ideation Onset (ago): day(s) Duration: constant History of same: Yes Relieving factors: none Exacerbating factors: none Associated psychiatric symptoms: Reports none Associated symptoms: Reports denies other symptoms Treatments prior to arrival: Reports none If self harm: admits thoughts of self harm Related Data Home Medications Medication Instructions Recorded Confirmed No Known Home Medications 03/07/18 03/07/18 Previous Rx's Medication Instructions Recorded sulfamethoxazole-trimethoprim 1 tab PO BID 5 Days #10 tab 03/08/18 [Bactrim DS] Allergies Allergy/AdvReac Type Severity Reaction Status Date / Time No Known Allergies Allergy Unverified 03/07/18 19:29 Review of Systems ROS: all other systems reviewed are negative PMFSH Medical History Medical History Anxiety (Acute) Depression (Acute) Suicidal ideation (Acute) Surgical History Surgical History No pertinent past surgical history (Acute) Social History Social History Substance History: No History of Abuse Smoking Status: Never smoker How Often Do You Have a Drink Containing Alcohol: 2 to 3 times a week Recent Travel in [facility] within the Last 8 Weeks: No Recent Out of Country Travel within the Last 8 Weeks: No Immunization History Tetanus Immunization: <5 Years Exam Narrative Exam Narrative: GENERAL: Well-nourished, well-developed patient. SKIN: Focused skin assessment warm/dry. HEAD: Normocephalic. EYES: No scleral icterus. No injection or drainage. NECK: Supple, trachea midline. No JVD or lymphadenopathy. CARDIOVASCULAR: Regular rate and rhythm without murmurs, gallops, or rubs. RESPIRATORY: Breath sounds equal bilaterally. No accessory muscle use. GASTROINTESTINAL: Abdomen soft, non-tender, nondistended. MUSCULOSKELETAL: No cyanosis, or edema. BACK: Nontender without obvious deformity. No CVA tenderness. Course Initial Documented Vital Signs Temperature 98.6 F 03/07/18 17:19 Pulse Rate 94 H 03/07/18 17:19 Respiratory Rate 16 03/07/18 17:19 Blood Pressure 148/88 H 03/07/18 17:19 Pulse Oximetry 98 03/07/18 17:19 Last Documented Vital Signs Temperature 98.1 F 03/08/18 10:33 Pulse Rate 85 03/08/18 18:38 Respiratory Rate 16 03/08/18 18:38 Blood Pressure 155/86 H 03/08/18 18:38 Pulse Oximetry 99 03/08/18 18:38 Medical Decision Making MDM Narrative Medical decision making narrative: 67 years old female requesting psychiatric evaluation for feeling suicidal. 23:28 PM. Patient is medically cleared for psychiatric evaluation. Medical Screen Exam Complete: Yes Emergency Medical Condition: Yes Lab Data Lab results reviewed: Yes I reviewed the patient's lab results. Result diagrams: 03/07/18 22:00 03/07/18 22:00 Lab Results 03/07/18 03/07/18 03/07/18 Range/Units 22:00 22:00 22:00 WBC 9.8 (4.0-11.0) th/mm3 RBC 4.82 (4.00-5.30) mil/mm3 Hgb 12.8 (11.6-15.3) gm/dL Hct 39.3 (35.0-46.0) % MCV 81.4 (80.0-100.0) fL MCH 26.6 L (27.0-34.0) pg MCHC 32.7 (32.0-36.0) % RDW 14.5 (11.6-17.2) % Plt Count 217 (150-450) th/mm3 MPV 9.4 (7.0-11.0) fL Neut % (Auto) 67.2 (16.0-70.0) % Lymph % (Auto) 26.7 (9.0-44.0) % [place] % (Auto) 5.2 (0.0-8.0) % Eos % (Auto) 0.4 (0.0-4.0) % Baso % (Auto) 0.5 (0.0-2.0) % Neut # (Auto) 6.6 (1.8-7.7) th/mm3 Lymph # (Auto) 2.6 (1.0-4.8) th/mm3 [place] # (Auto) 0.5 (0.0-0.9) th/mm3 Eos # (Auto) 0.0 (0.0-0.4) th/mm3 Baso # (Auto) 0.0 (0.0-0.2) th/mm3 WBC Differential . Differential Comment Auto diff final Sodium 143 (136-145) meq/L Potassium 3.7 (3.5-5.1) meq/L Chloride 105 (98-107) meq/L Carbon Dioxide 28.8 (21.0-32.0) meq/L Anion Gap 9 (5-15) meq/L BUN 19 H (7-18) mg/dL Creatinine 0.97 (0.50-1.00) mg/dL Estimated GFR 70 L (>89) mL/min Random Glucose 72 L (74-106) mg/dL Calcium 9.2 (8.5-10.1) mg/dL Total Bilirubin 0.6 (0.2-1.0) mg/dL AST 23 (15-37) U/L ALT 21 (10-53) U/L Alkaline Phosphatase 72 (45-117) U/L Total Protein 8.3 H (6.4-8.2) g/dL Albumin 3.8 (3.4-5.0) g/dL TSH 2.230 (0.358-3.740) uIU/mL Urine Color (Yellw/Straw) Urine Clarity (Clear) Urine pH (5.0-8.5) Ur Specific [place] (1.002-1.035) Urine Protein (Neg-Trace) mg/dL Urine Glucose (UA) (Negative) mg/dL Urine Ketones (Negative) mg/dL Urine Occult Blood (Negative) Urine Nitrate (Negative) Urine Bilirubin (Negative) Urine Urobilinogen (Less than 2) mg/dL Ur Leukocyte Esterase (Negative) Urine RBC (0-3) /hpf Urine WBC (0-5) /hpf Ur Squamous Epith Cells (0-5) /hpf Ur Renal Epithelial Cell (None) /hpf Urine Bacteria (None) /hpf Urine Mucus (Occasional) /lpf Micro UA Comment Ur Microscopic Review Urine Culture Comments Urine Opiates Screen Neg (Neg) Ur Barbiturates Screen Neg (Neg) Ur Amphetamines Screen Neg (Neg) U Benzodiazepines Scrn Neg (Neg) Urine Cocaine Screen Neg (Neg) U Cannabinoids Screen Neg (Neg) 03/08/18 Range/Units 17:12 WBC (4.0-11.0) th/mm3 RBC (4.00-5.30) mil/mm3 Hgb (11.6-15.3) gm/dL Hct (35.0-46.0) % MCV (80.0-100.0) fL MCH (27.0-34.0) pg MCHC (32.0-36.0) % RDW (11.6-17.2) % Plt Count (150-450) th/mm3 MPV (7.0-11.0) fL Neut % (Auto) (16.0-70.0) % Lymph % (Auto) (9.0-44.0) % [place] % (Auto) (0.0-8.0) % Eos % (Auto) (0.0-4.0) % Baso % (Auto) (0.0-2.0) % Neut # (Auto) (1.8-7.7) th/mm3 Lymph # (Auto) (1.0-4.8) th/mm3 [place] # (Auto) (0.0-0.9) th/mm3 Eos # (Auto) (0.0-0.4) th/mm3 Baso # (Auto) (0.0-0.2) th/mm3 WBC Differential Differential Comment Sodium (136-145) meq/L Potassium (3.5-5.1) meq/L Chloride (98-107) meq/L Carbon Dioxide (21.0-32.0) meq/L Anion Gap (5-15) meq/L BUN (7-18) mg/dL Creatinine (0.50-1.00) mg/dL Estimated GFR (>89) mL/min Random Glucose (74-106) mg/dL Calcium (8.5-10.1) mg/dL Total Bilirubin (0.2-1.0) mg/dL AST (15-37) U/L ALT (10-53) U/L Alkaline Phosphatase (45-117) U/L Total Protein (6.4-8.2) g/dL Albumin (3.4-5.0) g/dL TSH (0.358-3.740) uIU/mL Urine Color Yellow (Yellw/Straw) Urine Clarity Hazy H (Clear) Urine pH 5.0 (5.0-8.5) Ur Specific [place] 1.019 (1.002-1.035) Urine Protein Negative (Neg-Trace) mg/dL Urine Glucose (UA) Negative (Negative) mg/dL Urine Ketones Negative (Negative) mg/dL Urine Occult Blood Negative (Negative) Urine Nitrate Negative (Negative) Urine Bilirubin Negative (Negative) Urine Urobilinogen 2.0 H (Less than 2) mg/dL Ur Leukocyte Esterase Large H (Negative) Urine RBC 3 (0-3) /hpf Urine WBC 99 H (0-5) /hpf Ur Squamous Epith Cells 2 (0-5) /hpf Ur Renal Epithelial Cell 2 (None) /hpf Urine Bacteria Rare H (None) /hpf Urine Mucus Few H (Occasional) /lpf Micro UA Comment Culture indicated Ur Microscopic Review Not Reportable Urine Culture Comments Culture indicated Urine Opiates Screen (Neg) Ur Barbiturates Screen (Neg) Ur Amphetamines Screen (Neg) U Benzodiazepines Scrn (Neg) Urine Cocaine Screen (Neg) U Cannabinoids Screen (Neg) Discharge Plan Discharge Disposition Patient Disposition: 30 Still Patient Discharge Details Diagnosis: Acute UTI Physicians Team ED Provider: Charles Cuello Primary Care Provider: Primary Care Ene Alvarado Rxs /Orders / Referrals /Forms Prescriptions: New sulfamethoxazole-trimethoprim [Bactrim DS] 800-160 mg tablet 1 tab PO BID 5 Days Qty: 10 RF: 0 No Action No Known Home Medications RF: 0 Discharge Interventions Interventions: Vital Signs Last Done: 03/08/18 18:38 Status ED Status: Medically Cleared
[2018-03-07 22:36] LABS: Baso % (Auto) 0.5 % (0.0-2.0); Eos % (Auto) 0.4 % (0.0-4.0); Hematocrit 39.3 % (35.0-46.0); Hemoglobin 12.8 gm/dL (11.6-15.3); Lymph # (Auto) 2.6 th/mm3 (1.0-4.8); Lymph % (Auto) 26.7 % (9.0-44.0); Mean Corpuscular HGB Conc 32.7 % (32.0-36.0); Mean Corpuscular Hemoglobin 26.6 pg (27.0-34.0); Mean Corpuscular Volume 81.4 fL (80.0-100.0); Mean Platelet Volume 9.4 fL (7.0-11.0); Mono # (Auto) 0.5 th/mm3 (0.0-0.9); Mono % (Auto) 5.2 % (0.0-8.0); Neut # (Auto) 6.6 th/mm3 (1.8-7.7); Neut % (Auto) 67.2 % (16.0-70.0); Platelet Count 217 th/mm3 (150-450); Red Blood Count 4.82 mil/mm3 (4.00-5.30); Red Cell Distribution Width 14.5 % (11.6-17.2); White Blood Count 9.8 th/mm3 (4.0-11.0)
[2018-03-07 22:45] LABS: Amphetamine Screen,Urine Neg (Neg); Barbiturate Screen,Urine Neg (Neg); Cannabinoid Screen,Urine Neg (Neg); Cocaine Screen,Urine Neg (Neg)
[2018-03-07 22:46] LABS: Opiate Screen,Urine Neg (Neg)
[2018-03-07 22:57] LABS: Alanine Aminotransferase 21 U/L (10-53); Albumin 3.8 g/dL (3.4-5.0); Anion Gap 9 meq/L (5-15); Aspartate Aminotransferase 23 U/L (15-37); Blood Urea Nitrogen 19 mg/dL (7-18); Calcium 9.2 mg/dL (8.5-10.1); Carbon Dioxide 28.8 meq/L (21.0-32.0); Chloride 105 meq/L (98-107); Glomerular Filtration Rate 70 mL/min (>89); Glucose,Random 72 mg/dL (74-106); Potassium 3.7 meq/L (3.5-5.1); Sodium 143 meq/L (136-145)
[2018-03-07 23:07] LABS: Alkaline Phosphatase 72 U/L (45-117); Total Protein 8.3 g/dL (6.4-8.2)
[2018-03-08 17:36] LABS: Bacteria,Urine Rare /hpf; Bilirubin,Urine Negative (Negative); Clarity,Urine Hazy (Clear); Color,Urine Yellow (Yellw/Straw); Glucose,Urine (UA) Negative (Negative); Leukocyte Esterase,Urine Large (Negative); Mucus,Urine Few /lpf (Occasional); Nitrite,Urine Negative (Negative); Renal Epithelial Cells,Urine 2 /hpf; Specific Gravity,Urine 1.019 (1.002-1.035); Squamous Epithelial Cell,Urine 2 /hpf (0-5)
[2018-03-09] MEDS ORDERED: Aluminum/Magnesium/Simethacone Susp 30 ML UDC PO PRN (09:47)
[2018-03-09] MEDS ORDERED: LORazepam 0.5 MG Tablet PO PRN (09:47)
[2018-03-10 08:41] LABS: Calcium 8.9 mg/dL (8.5-10.1); Carbon Dioxide 27.9 meq/L (21.0-32.0); Potassium 3.9 meq/L (3.5-5.1)
[2018-03-10 09:06] LABS: Chol/HDL Ratio 3.8 Ratio
[2018-03-10 09:51] LABS: Hemoglobin A1c 5.9 % (4.3-6.0)
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
[2018-03-10] MEDS: Sertraline 50 MG Tablet PO SCH (13:34)
[2018-03-11] MEDS: Sertraline 50 MG Tablet PO SCH (08:26)
--- NOTE | 2018-03-11 15:23 | P.PNPSY ---
Subjective Chief Complaint: Suicidial Ideation, Depression, and Anxiety Remarks: Reviewed electronic medical records and discussed case with staff. Follow-up was conducted in patient's room with JESSE Morales present. Her nurse reports that the patient has been compliant with medications and had no behavioral disturbances. She states that she is been somewhat seclusive to her room. Patient reports that she is sleeping well has a good appetite. She states that she still remains depressed and her affect is somewhat sad. She denies any side effects from the medication. She does state that she is looking forward to speaking with a correctional counselor/case manager on Tuesday to help her find adequate housing. Mental Status Examination Appearance: Appropriate (Seated in chair in patients room, dressed in [facility], good posture), Disheveled Consciousness: Alert Orientation: Person, Date/Time, Situation (Thinks we are in [place]) Motor Activity: Normal gait Speech: Slow Language: Adequate Fund of Knowledge: Adequate Attention and Concentration: Adequate (Poor Eye contact) Memory: Immediate (intact), Recent (intact), Remote (intact) Mood: Appropriate ("Just fine.") Affect: Sad (Dysphoric), Flat Thought Process & Associations: Intact ("I know I need medications to feel better"), Logical, Linear Thought Content: Appropriate Hallucination Type: None Delusion Type: None Suicidal Ideation: Yes Suicidal Plan: No Suicidal Intention: No Homicidal Ideation: No Homicidal Plan: No Homicidal Intention: No Insight: Adequate Judgment: Adequate Assessment and Plan - Assessment (1) Major depressive disorder, single episode, moderate Code(s): F32.1 - Major depressive disorder, single episode, moderate Status: Acute - Plan Plan: Patient will be reevaluated Tuesday by the attending psychiatrist. Continue with current treatment plan. Justification for Continued Inpatient Stay: Moving this patient to a less restrictive environment would likely result in decompensation. Request Healthcare Surrogate/Guardian Advocate?: No
[2018-03-12] MEDS: Sertraline 50 MG Tablet PO SCH (08:22)
--- NOTE | 2018-03-12 11:16 | P.PNPSY ---
Subjective Chief Complaint: Suicidial Ideation, Depression, and Anxiety Remarks: Reviewed electronic medical records and discussed case with staff. Follow-up was conducted in patient's room JESSE Cyr. Patient states that she is feeling alot better except for her legs. She has bilateral pitting edema to both extremities. Hospitalist has been consulted. Patient states that she knows that she cannot go home. Nursing staff noted that she has multiple martial problems. Patient is open to a placement in a facility that can support her. She is very polite, calm and cooperative. Currently denies any suicidal or homicidal ideations. Review of Systems All other systems reviewed negative except as stated in HPI Mental Status Examination Appearance: Appropriate (Seated in chair in patients room, dressed in hospital pajamas, good posture), Disheveled Consciousness: Alert Orientation: Person, Date/Time, Situation (Thinks we are in [place]) Motor Activity: Normal gait Speech: Slow Language: Adequate Fund of Knowledge: Adequate Attention and Concentration: Adequate (Poor Eye contact) Memory: Immediate (intact), Recent (intact), Remote (intact) Mood: Appropriate ("Just fine.") Affect: Sad (Dysphoric), Flat Thought Process & Associations: Intact ("I know I need medications to feel better"), Logical, Linear Thought Content: Appropriate Hallucination Type: None Delusion Type: None Suicidal Ideation: No Suicidal Plan: No Suicidal Intention: No Homicidal Ideation: No Homicidal Plan: No Homicidal Intention: No Insight: Adequate Judgment: Adequate Assessment and Plan - Assessment (1) Major depressive disorder, single episode, moderate Code(s): F32.1 - Major depressive disorder, single episode, moderate Status: Acute - Plan Plan: Patient will be reevaluated Tuesday by the attending psychiatrist. Continue with current treatment plan. Justification for Continued Inpatient Stay: Moving patient to a less restrictive environment may result in her decompensation. Request Healthcare Surrogate/Guardian Advocate?: No
--- NOTE | 2018-03-12 15:06 | P.CONIM ---
History of Present Illness Consult date: 03/12/18 Reason for Consult: Leg swelling Primary Care Provider: No Primary Care Physician History of Present Illness: The patient is a 67-year-old female with a past medical history of depression who is currently being treated in the psychiatric department for depression. The patient states that she has no thoughts of harming herself at this time. She says she currently works at [employer] and lives with her coworker. Medicine has been consulted for leg swelling. The patient states that the legs have been swollen over the past 2 days. She denies any history of leg swelling in the past. She denies any pain in her legs. She denies any shortness of breath or chest pain. She says her leg swelling has been getting better. Review of Systems All other systems reviewed negative except as stated in HPI PMFSH - History History Provided By: Patient - Medical / Surgical Hx Neg / Unobtainable Medical Problems Denied: Yes - Medical History Medical History: Medical History (Last Reviewed 03/12/18 @ 14:59 by Kayode Lugo DO) Anxiety Depression Suicidal ideation - Surgical History Surgical History: Surgical History (Last Reviewed 03/12/18 @ 14:59 by Kayode Lugo DO) No pertinent past surgical history - Family History Family History: Family History (Last Updated 03/12/18 @ 14:59 by Kayode Lugo DO) Other Patient denies significant medical history - Social History I have reviewed the patient's Social History: Yes - Tobacco History Second Hand Smoke Exposure: No Tobacco Use In Past 30 Days: No Smoking Status: Never smoker - Alcohol History How Often Do You Have a Drink Containing Alcohol: Never - Substance Use History Substance History: No History of Abuse - Travel History History of Recent Travel: No Recent Travel in the [place] Within the Last 8 Weeks: No Recent Travel Out of the Country Within the Last 8 Weeks: No - Immunization History Tetanus Immunization: <5 Years Hx Influenza Vaccine This Season: No Medications and Allergies Active Medications: Active Medications Al Hydrox/Mg Hydrox/Simethicone (Mag-Al Plus Susp Liq) 30 ml PO Q6H PRN PRN Reason: DYSPEPSIA Al Hydroxide/Mg Hydroxide (Milk Of Magnesia Liq) 30 ml PO Q12H PRN PRN Reason: Mild Constipation Diphenhydramine HCl (Benadryl) 50 mg PO HS PRN PRN Reason: INSOMNIA Hydroxyzine HCl (Atarax) 50 mg PO Q6H PRN PRN Reason: ANXIETY Sennosides (Senokot) 17.2 mg PO Q12H PRN PRN Reason: Moderate Constipation Sertraline HCl (Zoloft) 25 mg PO DAILY [facility] Last Admin: 03/12/18 08:22 Dose: 25 mg Trimethoprim/Sulfamethoxazole (Bactrim Ds) 1 tab PO Q12HR [facility] Last Admin: 03/12/18 08:22 Dose: 1 tab Allergies Allergy/AdvReac Type Severity Reaction Status Date / Time No Known Allergies Allergy Unverified 03/07/18 19:29 Home Medications Medication Instructions Recorded Confirmed Type No Known Home Medications 03/07/18 03/07/18 History Exam Vital signs: Vital Signs 03/11/18 17:23 03/12/18 05:44 Temperature 97.4 F L 98.2 F Pulse Rate 69 88 Respiratory Rate 18 17 Blood Pressure 145/85 H 147/70 H Pulse Oximetry 100 97 Intake & Output 03/11/18 03/12/18 03/12/18 18:59 06:59 18:59 Intake Total 240 / 240 Balance 240 / 240 Weight 68.039 kg Intake: Oral 240 / 240 Other: Weight On Admission 68 kg Narrative: The patient would not allow me to examine her except for her lower extremities: Gen: NAD HEENT: NC, AT Extremities: 1-2+ edema, negative Homans sign, no erythema, nontender Psych: Flat affect Results - Labs CBC & Chem 7: 03/07/18 22:00 03/10/18 07:16 Assessment and Plan - Plan Depression The patient is currently on the psychiatric alford. She denies any suicidal ideation at this time. -Management per psychiatry. Lower extremity edema Likely dependant edema. The patient states that she does not want her legs to be examined with an ultrasound. Albumin WNL. -trial of compression stockings. -Lasix 20 mg daily if needed. Patient says it's getting better on its own so will monitor at this time. -No US as pt refusing. -check a BNP. UTI The pt is on Bactrim. Urine culture negative. -d/c antibiotics. PPx: Ambulation
[2018-03-13] MEDS: Sertraline 50 MG Tablet PO SCH ×2 (09:44→17:23)
--- NOTE | 2018-03-13 11:39 | P.PNPSY ---
Subjective Chief Complaint: Suicidial Ideation, Depression, and Anxiety Remarks: Ms. Quintana is found in her room, quietly sitting in chair next to bed, dressed in [facility]. She is pleasant, cooperative, and alert throughout the interview but exhibits poor eye contact, flat affect, and limited emotional responsiveness. She describes her mood as "fair" when asked to use another word she states "happy". She states that she feels that her condition has improved since last week stating "my thoughts are better, I don't think about killing myself as much". She endorses intermittent SI and Anxiety. She states that her Anxiety mainly concerns her living arrangements and would like to know when the social workers will be around to speak with her. She reports that she has participated in group activities and wants to know if she will receive a menu for lunch. She denies any auditory/visual/tactile hallucinations, delusions, depression, sadness, tearfulness, or HI at time of interview. She also denies any N/V, Chest Pain, SOB, Indigestion/Belching, Abdominal Pain, Diarrhea, Pelvic Pain, Dysuria, Vaginal Bleeding, or Rash. Nurses report that she slept from 11pm-5am this morning with the covers over her head oriented with her head at the foot of the bed, she sits in her chair without speaking or moving most of the day, they noted "bizarre" behavior over the weekend but did not provide details as to what specifically, and that she denied an U/S of Lower Extremity to evaluate edema. When asked why she declined the U/S, she states "because the doctor wanted me to try medicine first" however, the IM Note does not reflect this which states that Ms. Quintana declined U/S and they suggested Compression Stockings and Lasix 20mg qD PRN but neither has been implemented yet based on chart review. Based on my psychiatric evaluation, the patient is not forthcoming regarding her true emotional state and has not improved at all since my last visit with her on Tuesday03/10/18. Affect is mood incongruent and she exhibits very limited emotional responsiveness, poor eye contact, and when challenged about her verbal responses regarding her mental/emotional state it appears to produce some level of anxiety and/or discomfort. She has not spoken with any friends or family members since admission and states that she has no desire to speak with them or for us to contact them either. Ms. Quintana was also hesitant to allow me to examine her but ultimately agreed, to which I found no waxy flexibility, echolalia, or echopraxia. I will discuss my findings with Dr. Kirkpatrick and visit the patient later today to address these concerns. For the time being, continue current treatment plan and monitor. She seems to be tolerating Sertraline and Bactrim well and reports no adverse effects. I will also speak with social work to see if they can visit patient within the next day or so as well. Review of Systems All other systems reviewed negative except as stated in HPI Cardiovascular: Reports foot swelling, Reports leg swelling (addressed by IM Hospitalist) Respiratory: Denies change in phlegm color, Denies chest congestion, Denies cough, Denies coughing up blood, Denies excessive phlegm production, Denies pain on inspiration, Denies pain with cough, Denies shortness of breath, Denies shortness of breath with activity, Denies snoring, Denies stridor, Denies wheezing, Denies other Gastrointestinal: Denies abdominal pain, Denies belching, Denies black, tarry stools, Denies bloating, Denies bright, red blood in stools, Denies change in bowel habits, Denies constant urge to pass stool, Denies change in stools, Denies coffee ground vomit, Denies constipation, Denies cramping, Denies difficulty swallowing, Denies excessive passing of gas, Denies feeling full early, Denies heartburn, Denies incontinent of stools, Denies loose stools, Denies nausea, Denies pain with swallowing, Denies vomiting, Denies vomiting blood, Denies other Genitourinary: Denies abnormal periods, Denies abnormal vaginal bleeding, Denies absent period, Denies bleeding between periods, Denies blood in urine, Denies difficulty starting urination, Denies difficulty urinating, Denies dribbling after urination, Denies frequent nighttime urination, Denies genital itching, Denies genital lesions, Denies heavy periods, Denies hot flashes, Denies light periods, Denies nipple discharge, Denies painful intercourse, Denies painful periods, Denies painful urination, Denies pelvic pain, Denies prolapse symptoms, Denies sexual problems, Denies side pain, Denies urinary incontinence, Denies urinary urgency, Denies vaginal discharge, Denies vaginal dryness, Denies vaginal odor, Denies vaginal itching, Denies other Musculoskeletal: Denies abnormal walking, Denies back pain, Denies body aches, Denies decreased muscle mass, Denies deformity, Denies joint pain, Denies joint swelling, Denies limited joint movement, Denies loss of height, Denies muscle cramps, Denies muscle weakness, Denies neck pain, Denies numbness, Denies radiating pain into limb, Denies stiffness, Denies tingling, Denies other Skin/Breast: Denies acne, Denies bleeding lesions, Denies boil, Denies breast swelling, Denies breast skin changes, Denies breast pain, Denies breast lump, Denies change in breast shape, Denies change in hair, Denies change in skin color, Denies changing lesions, Denies dry skin, Denies excessive hair growth, Denies hair loss, Denies itching, Denies lesions, Denies nail changes, Denies new lesions, Denies nipple discharge, Denies non-healing lesions, Denies redness , Denies sensitivity to light, Denies rash, Denies skin pain, Denies skin ulcer , Denies sores, Denies stretch rodgers, Denies unusual bruising, Denies wounds, Denies yellowing of the skin, Denies other Neurologic: Denies abnormal hearing, Denies abnormal movements, Denies abnormal speech, Denies abnormal walking, Denies behavioral changes, Denies burning sensations, Denies confusion, Denies dizziness, Denies fainting, Denies frequent falls, Denies headache(s), Denies lack of coordination, Denies localized weakness, Denies loss of vision, Denies memory loss, Denies numbness, Denies other visual disturbances, Denies radiating pain, Denies restless legs, Denies convulsions, Denies seizure-like activity, Denies sensory deficit, Denies tingling, Denies tingling/numbness/burning sensations, Denies tremor(s), Denies unsteadiness, Denies weakness, Denies other Psychiatric: Reports depression, Reports thoughts of hurting/killing yourself Mental Status Examination Appearance: Appropriate (Seated in chair in patients room, dressed in [facility], good posture) Consciousness: Alert (Poor eye contact) Orientation: Person, Date/Time, Situation (Thinks we are in [place]) Motor Activity: Normal gait Speech: Slow (slowed rate, decreased volume, seems to be manufactured, structured responses) Language: Adequate Fund of Knowledge: Adequate Attention and Concentration: Adequate (Poor Eye contact) Memory: Immediate (intact), Recent (intact), Remote (intact) Mood: Appropriate ("Just fine. Happy") Affect: Sad (Mood Incongruent, Dysphoric), Flat Thought Process & Associations: Intact ("I know I need medications to feel better"), Logical, Linear Thought Content: Appropriate Hallucination Type: None Delusion Type: None Suicidal Ideation: Yes Suicidal Plan: No Suicidal Intention: No Homicidal Ideation: No Homicidal Plan: No Homicidal Intention: No Insight: Adequate Judgment: Adequate Assessment and Plan - Assessment (1) Major depressive disorder, single episode, moderate Code(s): F32.1 - Major depressive disorder, single episode, moderate Status: Acute - Plan Plan: Based on my psychiatric evaluation, the patient is not forthcoming regarding her true emotional state and has not improved at all since my last visit with her on Tuesday03/10/18. She describes her mood as "Just fine. Happy." but her Affect is mood incongruent exhibiting very limited emotional responsiveness, poor eye contact, looks at the floor throughout most of the interview, and when challenged about her verbal responses regarding her mental/emotional state it appears to produce some level of anxiety and/or discomfort. She has not spoken with any friends or family members since admission and states that she has no desire to speak with them or for us to contact them either. Ms. Quintana was also hesitant to allow me to examine her but ultimately agreed, to which I found no waxy flexibility, echolalia, echopraxia, stupor, negativism, catalepsy, mutism, resting tremor, intention tremor, or decreased metal flow coordinator strength. I will discuss my findings with Dr. Kirkpatrick and visit the patient later today to address these concerns. For the time being, continue current treatment plan and monitor. She seems to be tolerating Sertraline and Bactrim well and reports no adverse effects. I spoke with Rohit with social work about her case around 1pm and he stated that he will try to speak with Ms. Quintana within the next day. Request Healthcare Surrogate/Guardian Advocate?: No
--- NOTE | 2018-03-13 13:03 | P.PN ---
Subjective Interval history: Follow up on patient with BLE edema. Patient seen and examined. Patient agreeable to me examining her legs but refused any additional examination. Patient states that the swelling in her legs is better. She denies any complaints of cough, shortness of breath or chest pain. She denies any nausea or vomiting. She continues to decline Doppler ultrasound studies. Discussed with nursing staff, no adverse events noted overnight. Physical Exam Vital signs: Vital Signs 03/12/18 17:38 Temperature 97.4 F L Pulse Rate 62 Respiratory Rate 16 Blood Pressure 147/65 H Pulse Oximetry 100 Intake & Output 03/12/18 03/13/18 03/13/18 18:59 06:59 18:59 Intake Total 960 / 960 1440 / 1440 Balance 960 / 960 1440 / 1440 Intake: Oral 960 / 960 1440 / 1440 Other: # Voids 3 Narrative: Again today patient will only allow examination of her bilateral lower extremities GENERAL: Well-developed well-nourished -[place] female in no acute distress. Appears comfortable. Seated in bedside chair in her room. SKIN: No obvious rash. HEAD: Atraumatic. Normocephalic. EYES: No scleral icterus. No injection or drainage. ENT: No nasal bleeding or discharge. CARDIOVASCULAR: refused RESPIRATORY: refused GASTROINTESTINAL: refused MUSCULOSKELETAL: Bilateral lower extremities trace to 1+ pitting edema, improved from yesterday. NEUROLOGICAL: Awake and alert. Able to move extremities spontaneously. Normal speech. PSYCHIATRIC: Flat affect. Results - Labs CBC & Chem 7: 03/07/18 22:00 03/10/18 07:16 Laboratory Results - last 24 hr 03/12/18 17:10 B-Natriuretic Peptide 9 Assessment and Plan - Plan Depression The patient is currently on the psychiatric alford. She denies any suicidal ideation at this time. -Management per psychiatry. Lower extremity edema, improving Likely dependant edema. The patient states that she does not want her legs to be examined with an ultrasound. Albumin WNL. BNP 9 -trial of compression stockings -Lasix 20 mg daily if needed. Patient says it's getting better on its own so will monitor at this time. -keep legs elevated -No US as pt refusing. UTI The pt is on Bactrim. Urine culture negative. -d/c antibiotics. PPx: Ambulation Patient appears stable from hospitalist standpoint. [facility] will sign off. Please reconsult if needed. Code Status: Full Discussed Condition With: patient, nursing staff
--- NOTE | 2018-03-13 15:08 | P.PNPSY ---
Subjective Chief Complaint: Suicidial Ideation, Depression, and Anxiety Remarks: Patient seen in her room with nurse Cardenas and [facility], chart reviewed, patient compliant medication. Patient remains isolating today he is sitting on the side of her bed very quiet still with a list of blunted affect. Though also with a sad face. Patient does respond appropriately acknowledges being depressed acknowledges being suicidal though she does deny voices at we will increase Zoloft to 50 mg daily continue treatment as Review of Systems All other systems reviewed negative except as stated in HPI Mental Status Examination Appearance: Appropriate (Seated in chair in patients room, dressed in [facility], good posture) Consciousness: Alert (Poor eye contact) Orientation: Person, Date/Time, Situation (Thinks we are in [place]) Motor Activity: Normal gait Speech: Slow (slowed rate, decreased volume, seems to be manufactured, structured responses) Language: Adequate Fund of Knowledge: Adequate Attention and Concentration: Adequate (Poor Eye contact) Memory: Immediate (intact), Recent (intact), Remote (intact) Mood: Appropriate ("Just fine. Happy") Affect: Sad (Mood Incongruent, Dysphoric), Flat Thought Process & Associations: Intact ("I know I need medications to feel better"), Logical, Linear Thought Content: Appropriate Hallucination Type: None Delusion Type: None Suicidal Ideation: Yes Suicidal Plan: No Suicidal Intention: No Homicidal Ideation: No Homicidal Plan: No Homicidal Intention: No Insight: Adequate Judgment: Adequate Assessment and Plan - Assessment (1) Major depressive disorder, single episode, moderate Code(s): F32.1 - Major depressive disorder, single episode, moderate Status: Acute - Plan Plan: Patient is continues depressed and suicidal though she denies voices and appears she may be responding to internal stimuli. Justification for Continued Inpatient Stay: Patient remains depressed suicidal isolating and somewhat melancholic Discharge Planning: To be determined Request Healthcare Surrogate/Guardian Advocate?: No
[2018-03-14] MEDS: Sertraline 50 MG Tablet PO SCH (08:33)
--- NOTE | 2018-03-14 11:37 | P.PNPSY ---
Subjective Chief Complaint: Suicidial Ideation, Depression, and Anxiety Remarks: Ms. Quintana is found in her room, watching TV, sitting upright in chair next to bed, wearing hospital pajamas, and smiled when I entered the room. She describes her mood as "good" but affect is mood incongruent with a flat affect, limited emotional responsiveness, poor eye contact, and overall dysphoric appearance. She endorses frequent SI stating "I just think about myself and get to feeling bad so I start thinking about how I would do it". When asked how this makes her feel she responds "bad". She also endorses Anxiety regarding her living situation and asked when social work would come to talk to her, I informed her that I spoke w/ Rohit yesterday and that he should come around anytime but is very busy. She appears to be suppressing/withholding her true emotions, thought content, and possible elements of personal history. When challenged about these items she becomes visibly agitated and uncomfortable. She reports that her ex-husbands name is Efe Quintana, and her (2) recently friends were named "Kadeem" and "Manisha" but states that she does not want to talk about them. Adequate attention/concentration, linear intact thought process, logical thought content. Endorses SI and Anxiety. Denies any HI , auditory/visual/tactile hallucinations, delusions, or nightmares. She seems to be tolerating Zoloft well and denies any n/v, abdominal pain, diarrhea/ constipation, or acid reflux. Physical exam is negative for echolalia, echopraxia, resting tremor, or intention tremor. Nursing report states that she slept from 12am-7:15am oriented with head at foot of bed completely covered head to toe. She has not participated in any group activities despite Ms. Quintana attesting that she did. Nurses state that she has declined compression stockings recommended by hospitalist team and has not yet received a dose of Lasix but when patient is asked she states "No, they gave me medicine for it and told me it was for that." Chart review indicates the patient has denied LE U/S and Compression Stockings and has not received Lasix at time of interview. She denies any chest pain, sob, abdominal pain/ fullness, pelvic pain, dysuria, or LE pain. I will report these findings to Dr. Kirkpatrick and round on the patient this afternoon with him. Continue current treatment plan at this time. Review of Systems All other systems reviewed negative except as stated in HPI Cardiovascular: Denies chest pain, Denies chest pain at rest, Denies chest pain with activity, Denies excessive sweating, Denies fainting, Denies fast heart rate, Denies foot swelling, Denies generalized swelling, Denies irregular heart rhythm, Denies leg pain with activity, Denies leg sores, Denies leg swelling, Denies lightheadedness, Denies radiating jaw, neck or arm pain, Denies rapid, pounding, or irregular heartbeat, Denies shortness of breath, Denies shortness of breath with activity, Denies shortness of breath when lying down, Denies shortness of breath causing sudden awakening, Denies slow heart rate, Denies other Respiratory: Denies change in phlegm color, Denies chest congestion, Denies cough, Denies coughing up blood, Denies excessive phlegm production, Denies pain on inspiration, Denies pain with cough, Denies shortness of breath, Denies shortness of breath with activity, Denies snoring, Denies stridor, Denies wheezing, Denies other Gastrointestinal: Denies abdominal pain, Denies belching, Denies black, tarry stools, Denies bloating, Denies bright, red blood in stools, Denies change in bowel habits, Denies constant urge to pass stool, Denies change in stools, Denies coffee ground vomit, Denies constipation, Denies cramping, Denies difficulty swallowing, Denies excessive passing of gas, Denies feeling full early, Denies heartburn, Denies incontinent of stools, Denies loose stools, Denies nausea, Denies pain with swallowing, Denies vomiting, Denies vomiting blood, Denies other Genitourinary: Denies abnormal periods, Denies abnormal vaginal bleeding, Denies absent period, Denies bleeding between periods, Denies blood in urine, Denies difficulty starting urination, Denies difficulty urinating, Denies dribbling after urination, Denies frequent nighttime urination, Denies genital itching, Denies genital lesions, Denies heavy periods, Denies hot flashes, Denies light periods, Denies nipple discharge, Denies painful intercourse, Denies painful periods, Denies painful urination, Denies pelvic pain, Denies prolapse symptoms, Denies sexual problems, Denies side pain, Denies urinary incontinence, Denies urinary urgency, Denies vaginal discharge, Denies vaginal dryness, Denies vaginal odor, Denies vaginal itching, Denies other Musculoskeletal: Denies abnormal walking, Denies back pain, Denies body aches, Denies decreased muscle mass, Denies deformity, Denies joint pain, Denies joint swelling, Denies limited joint movement, Denies loss of height, Denies muscle cramps, Denies muscle weakness, Denies neck pain, Denies numbness, Denies radiating pain into limb, Denies stiffness, Denies tingling, Denies other Psychiatric: Reports anxiety, Reports depression, Reports hopelessness, Reports thoughts of hurting/killing yourself Mental Status Examination Appearance: Appropriate (Seated in chair in patients room, dressed in [facility], good posture) Consciousness: Alert (Poor eye contact) Orientation: x4, Person, Place, Date/Time, Situation (Thinks we are in [place]) Motor Activity: Other (short shuffling steps) Speech: Hesitant, Slow (slowed rate, decreased volume, seems to be manufactured , structured responses) Language: Adequate Fund of Knowledge: Adequate Attention and Concentration: Adequate (Poor Eye contact) Memory: Immediate (intact), Recent (intact), Remote (intact) Mood: Appropriate ("good") Affect: Irritable (when challenged about emotional/mental state, personal history, and when I asked her "I feel like I'm missing something or that you may be knowingly/unknowingly holding back, what do you think?"), Sad (Mood Incongruent, Dysphoric), Flat Thought Process & Associations: Intact ("I know I need medications to feel better"), Logical, Linear Thought Content: Appropriate Hallucination Type: None Delusion Type: None Suicidal Ideation: Yes Suicidal Plan: No Suicidal Intention: No Homicidal Ideation: No Homicidal Plan: No Homicidal Intention: No Insight: Adequate Judgment: Adequate Assessment and Plan - Assessment (1) Major depressive disorder, single episode, moderate Code(s): F32.1 - Major depressive disorder, single episode, moderate Status: Acute - Plan Plan: Patient is continues depressed and suicidal though she denies voices and appears she may be responding to internal stimuli. She appears to be withholding information and is not accurate/truthful in her responses to questions about treatment for her LE Edema and her participation in group activities. When she is challenged about this she became visibly irritated and uncomfortable. Continue treatment plan for now Zoloft 50mg PO BID, Bactrim BID for UTI. I will address my concerns and findings with Dr. Kirkpatrick and round on patient this afternoon with him present. Request Healthcare Surrogate/Guardian Advocate?: No
--- NOTE | 2018-03-14 15:37 | P.PNPSY ---
Subjective Chief Complaint: Suicidial Ideation, Depression, and Anxiety Remarks: Patient is seen in her room with medical student Delmar, also present was staff from [facility]. Chart reviewed. Patient compliant medication. Patient remains somewhat depressed though there is some improvement in her affect her eye contact and responses. She seems to be responding quite positively to the possibility of appropriate placement at [facility]. For now continue treatment Review of Systems All other systems reviewed negative except as stated in HPI Mental Status Examination Appearance: Appropriate (Seated in chair in patients room, dressed in [facility], good posture) Consciousness: Alert (Poor eye contact) Orientation: x4, Person, Place, Date/Time, Situation (Thinks we are in [place]) Motor Activity: Other (short shuffling steps) Speech: Hesitant, Slow (slowed rate, decreased volume, seems to be manufactured , structured responses) Language: Adequate Fund of Knowledge: Adequate Attention and Concentration: Adequate (Poor Eye contact) Memory: Immediate (intact), Recent (intact), Remote (intact) Mood: Appropriate ("good") Affect: Irritable (when challenged about emotional/mental state, personal history, and when I asked her "I feel like I'm missing something or that you may be knowingly/unknowingly holding back, what do you think?"), Sad (Mood Incongruent, Dysphoric), Flat Thought Process & Associations: Intact ("I know I need medications to feel better"), Logical, Linear Thought Content: Appropriate Hallucination Type: None Delusion Type: None Suicidal Ideation: Yes Suicidal Plan: No Suicidal Intention: No Homicidal Ideation: No Homicidal Plan: No Homicidal Intention: No Insight: Adequate Judgment: Adequate Assessment and Plan - Assessment (1) Major depressive disorder, single episode, moderate Code(s): F32.1 - Major depressive disorder, single episode, moderate Status: Acute - Plan Plan: Patient continues compliant with medication continues depressed though showing some improvement went discussing possible placement of the staff from [facility] Justification for Continued Inpatient Stay: At this time patient may decompensate if not placed in an appropriate level of care Discharge Planning: To be determined Request Healthcare Surrogate/Guardian Advocate?: No
[2018-03-15] MEDS: Sertraline 50 MG Tablet PO SCH (08:01)
--- NOTE | 2018-03-15 15:31 | P.PNPSY ---
Subjective Chief Complaint: Suicidial Ideation, Depression, and Anxiety Remarks: Patient is seen in her room with nurse Catrachita. Chart reviewed. Patient compliant medications. Patient continues to isolate sitting in her room quietly in her chair beside her bed watching TV. Though today her face is somewhat more animated there is some increase in her affect and in her eye contact. It appears she has had a good response to interview with [facility]. She denies voices today does denies suicidality today. Though she acknowledges a mood still being somewhat depressed. However she is excited about possible placement at [facility] on Tuesday. For now continue treatment no change Review of Systems All other systems reviewed negative except as stated in HPI Mental Status Examination Appearance: Appropriate (Seated in chair in patients room, dressed in [facility], good posture) Consciousness: Alert (Poor eye contact) Orientation: x4, Person, Place, Date/Time, Situation (Thinks we are in [place]) Motor Activity: Other (short shuffling steps) Speech: Hesitant, Slow (slowed rate, decreased volume, seems to be manufactured , structured responses) Language: Adequate Fund of Knowledge: Adequate Attention and Concentration: Adequate (Poor Eye contact) Memory: Immediate (intact), Recent (intact), Remote (intact) Mood: Appropriate ("good") Affect: Irritable (when challenged about emotional/mental state, personal history, and when I asked her "I feel like I'm missing something or that you may be knowingly/unknowingly holding back, what do you think?"), Sad (Mood Incongruent, Dysphoric), Flat Thought Process & Associations: Intact ("I know I need medications to feel better"), Logical, Linear Thought Content: Appropriate Hallucination Type: None Delusion Type: None Suicidal Ideation: Yes Suicidal Plan: No Suicidal Intention: No Homicidal Ideation: No Homicidal Plan: No Homicidal Intention: No Insight: Adequate Judgment: Adequate Assessment and Plan - Assessment (1) Major depressive disorder, single episode, moderate Code(s): F32.1 - Major depressive disorder, single episode, moderate Status: Acute - Plan Plan: Patient continues depressed but improving denying suicidality or voices today. Compliant medication. If patient continues to improve consider discharge Tuesday to [facility] Justification for Continued Inpatient Stay: At this time patient would decompensate if not placed in an appropriate level of care Discharge Planning: To be determined probable placement at [facility] on Saturday 03/17 Request Healthcare Surrogate/Guardian Advocate?: No
[2018-03-16] MEDS: Sertraline 50 MG Tablet PO SCH (08:19)
--- NOTE | 2018-03-16 08:40 | P.TTN ---
- Patient Problems Problems: 1. Discharge planning 2. Medication compliance 3. Knowledge deficit 4. Lack of coping skills - Progress Toward Goals Provider Present: Dr. Mary Kirkpatrick Provider Input: 03/15/2018; per doctor patient requires a day or two longer to ensure medication stablization; no behavior reported Nurse(s) Present: RN Nurse Input: 03/15/2018; per RN, patient is compliant with meals, and treatment , no behavior does however patient is not very forthcoming with a flat mood/ affect Psychiatric Counselors Present: Zaida Palmer [facility] Psychiatric Therapist Input: 03/15/2018; Rand with [facility] has accepted patient when ready, and patient will do outpt follow-up with [facility] Group Spec/RT/OT/CHÁVEZ Present: Moncho Carrion OT Group Spec/RT/OT/CHÁVEZ Input: 03/15/2018; patient attends select groups with limited to no participation - Documentation Teaching Recipient: Patient
--- NOTE | 2018-03-16 11:38 | P.PNPSY ---
Subjective Chief Complaint: Suicidial Ideation, Depression, and Anxiety Remarks: Ms. Quintana is found sitting upright in chair, in her room, dressed in [facility]. Another patient and their sitter present during interview. Pt appears alert, pleasant, and cooperative throughout interview and greeted me with a smile when I entered room but maintains a flat affect throughout most of interview. She shows slight improvement in emotional responsiveness and eye contact compared to previous visits. She describes her mood as "Good" and is happy regarding the news of her placement in [facility]. She reports that her last SI was yesterday but reports that it is decreasing in frequency and believes that her mental health is improving since admission. Nurses report that patient is the same with slight improvement in mood/emotional responsiveness but continues to isolate and exhibit flat affect. She denies any current SI/HI, auditory/visual/tactile hallucinations, delusions, IOR, anxiety, or depressive symptoms at time of interview. She is tolerating her Zoloft 50mg well and denies any n/v, indigestion/refulx, abdominal pain, changes in defecation, elevated mood, racing thoughts, or other manic/hypomanic symptoms. She has not received a dose of bactrim since Tuesday and denies any pelvic pain, flank pain, inguinal pain, dysuria, itching, or vaginal bleeding. Consider increasing to Zoloft 100mg today. Consider recheck of urine analysis to assess UTI resolution. Will report my findings to attending Dr. Kirkpatrick and round with him on patient this afternoon. Continue current treatment plan at this time. Review of Systems All other systems reviewed negative except as stated in HPI Psychiatric: Reports depression, Reports thoughts of hurting/killing yourself Mental Status Examination Appearance: Appropriate (Seated in chair in patients room, dressed in [facility], good posture) Consciousness: Alert (Poor eye contact albeit improving) Orientation: x4, Person, Place, Date/Time, Situation Motor Activity: Other (short shuffling steps) Speech: Slow (improving) Language: Adequate Fund of Knowledge: Adequate Attention and Concentration: Adequate (Poor Eye contact (improving)) Memory: Immediate (intact), Recent (intact), Remote (intact) Mood: Appropriate ("good") Affect: Sad (Mood Incongruent, Dysphoric), Flat Thought Process & Associations: Intact, Logical, Linear Thought Content: Appropriate Hallucination Type: None Delusion Type: None Suicidal Ideation: Yes (patient self-reports that SI is improving and is occuring less frequently now. Last SI was yesterday afternoon.) Suicidal Plan: No Suicidal Intention: No Homicidal Ideation: No Homicidal Plan: No Homicidal Intention: No Insight: Fair Judgment: Adequate Assessment and Plan - Assessment (1) Major depressive disorder, single episode, moderate Code(s): F32.1 - Major depressive disorder, single episode, moderate Status: Acute - Plan Plan: Upon my psychiatric evaluation, Ms. Quintana appears to show slight improvement in terms of emotional responsiveness, eye contact, anxiety state, and mood. She continues to exhibit flat affect and endorses SI, although she states that her SI is decreasing in frequency and intensity. Consider increasing to Zoloft 100mg today. Consider recheck of urine analysis to assess UTI resolution. Will report my findings to attending Dr. Kirkpatrick and round with him on patient this afternoon. Continue current treatment plan at this time. Request Healthcare Surrogate/Guardian Advocate?: No
--- NOTE | 2018-03-16 15:42 | P.PNPSY ---
Subjective Chief Complaint: Suicidial Ideation, Depression, and Anxiety Remarks: Patient seen in her room with medical student Delmar, chart reviewed, patient sitting quietly watching TV is alert oriented calm cooperative, she is somewhat more reactive with me today. She denies suicidal ideation today denies voices. She continues to be willing to go to [facility] tomorrow. At this time will increase her Zoloft to 100 mg daily Review of Systems All other systems reviewed negative except as stated in HPI Mental Status Examination Appearance: Appropriate (Seated in chair in patients room, dressed in [facility], good posture) Consciousness: Alert (Poor eye contact albeit improving) Orientation: x4, Person, Place, Date/Time, Situation Motor Activity: Other (short shuffling steps) Speech: Slow (improving) Language: Adequate Fund of Knowledge: Adequate Attention and Concentration: Adequate (Poor Eye contact (improving)) Memory: Immediate (intact), Recent (intact), Remote (intact) Mood: Appropriate ("good") Affect: Sad (Mood Incongruent, Dysphoric), Flat Thought Process & Associations: Intact, Logical, Linear Thought Content: Appropriate Hallucination Type: None Delusion Type: None Suicidal Ideation: Yes (Denies today) Suicidal Plan: No Suicidal Intention: No Homicidal Ideation: No Homicidal Plan: No Homicidal Intention: No Insight: Fair Judgment: Adequate Assessment and Plan - Assessment (1) Major depressive disorder, single episode, moderate Code(s): F32.1 - Major depressive disorder, single episode, moderate Status: Acute - Plan Plan: Patient depression is lifting, she denies suicidality and voices today. She medication adjustment above consider discharge tomorrow to [facility] Justification for Continued Inpatient Stay: At this time patient would decompensate if not placed in an appropriate level of care Discharge Planning: Consider discharge to [facility] tomorrow Request Healthcare Surrogate/Guardian Advocate?: No
[2018-03-17 05:54] VITALS: BP 121/76; PULSE 65; RESP 15; TEMP 98.5; O2SAT 96
[2018-03-17] MEDS ORDERED: Sertraline 100 MG Tablet PO SCH (09:00)
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
--- NOTE | 2018-03-17 09:41 | P.PNPSY ---
Subjective Chief Complaint: Suicidial Ideation, Depression, and Anxiety Remarks: Ms. Quintana is found in sitting upright in chair, in her room, dressed in hospital pajamas and blanket, another patient and their sitter is present throughout interview. She describes her mood as "okay" and states "I'm ready to be discharged". She denies SI/HI, auditory/visual/tactile hallucinations, delusions, or depressive symptoms since our last visit with her yesterday. She continues to exhibit flat affect, poor eye contact, decreased range and intensity, anhedonia, and limited emotional responsiveness. Provides brief, short answers to all questions throughout interview. I informed her that she is still set to be discharged today which brought a brief smile to her face. She is scheduled to receive new dose of Zoloft 100mg at 0900 today. I discussed potential common side effects of medication, the importance of compliance, healthy lifestyle choices including exercise and healthy diet to reduce weight gain secondary to SSRI, and importance of f/u with [facility] outpatient. Instructed patient to return to ED if she has increased LE Edema, Chest Pain, SOB, SI/HI, or Hypomanic/Manic Sx. F/u with [facility] outpatient for continued care. Discharge packet is being prepared by Dr. Kirkpatrick at this time. Review of Systems All other systems reviewed negative except as stated in HPI Cardiovascular: Denies chest pain, Denies chest pain at rest, Denies chest pain with activity, Denies excessive sweating, Denies fainting, Denies fast heart rate, Denies foot swelling, Denies generalized swelling, Denies irregular heart rhythm, Denies leg pain with activity, Denies leg sores, Denies leg swelling, Denies lightheadedness, Denies radiating jaw, neck or arm pain, Denies rapid, pounding, or irregular heartbeat, Denies shortness of breath, Denies shortness of breath with activity, Denies shortness of breath when lying down, Denies shortness of breath causing sudden awakening, Denies slow heart rate, Denies other Respiratory: Denies change in phlegm color, Denies chest congestion, Denies cough, Denies coughing up blood, Denies excessive phlegm production, Denies pain on inspiration, Denies pain with cough, Denies shortness of breath, Denies shortness of breath with activity, Denies snoring, Denies stridor, Denies wheezing, Denies other Gastrointestinal: Denies abdominal pain, Denies belching, Denies black, tarry stools, Denies bloating, Denies bright, red blood in stools, Denies change in bowel habits, Denies constant urge to pass stool, Denies change in stools, Denies coffee ground vomit, Denies constipation, Denies cramping, Denies difficulty swallowing, Denies excessive passing of gas, Denies feeling full early, Denies heartburn, Denies incontinent of stools, Denies loose stools, Denies nausea, Denies pain with swallowing, Denies vomiting, Denies vomiting blood, Denies other Genitourinary: Denies abnormal periods, Denies abnormal vaginal bleeding, Denies absent period, Denies bleeding between periods, Denies blood in urine, Denies difficulty starting urination, Denies difficulty urinating, Denies dribbling after urination, Denies frequent nighttime urination, Denies genital itching, Denies genital lesions, Denies heavy periods, Denies hot flashes, Denies light periods, Denies nipple discharge, Denies painful intercourse, Denies painful periods, Denies painful urination, Denies pelvic pain, Denies prolapse symptoms, Denies sexual problems, Denies side pain, Denies urinary incontinence, Denies urinary urgency, Denies vaginal discharge, Denies vaginal dryness, Denies vaginal odor, Denies vaginal itching, Denies other Neurologic: Denies abnormal hearing, Denies abnormal movements, Denies abnormal speech, Denies abnormal walking, Denies behavioral changes, Denies burning sensations, Denies confusion, Denies dizziness, Denies fainting, Denies frequent falls, Denies headache(s), Denies lack of coordination, Denies localized weakness, Denies loss of vision, Denies memory loss, Denies numbness, Denies other visual disturbances, Denies radiating pain, Denies restless legs, Denies convulsions, Denies seizure-like activity, Denies sensory deficit, Denies tingling, Denies tingling/numbness/burning sensations, Denies tremor(s), Denies unsteadiness, Denies weakness, Denies other Psychiatric: Reports anxiety ((improving)), Reports depression, Reports difficulty concentrating ((improving)), Reports hopelessness ((improving)), Reports thoughts of hurting/killing yourself ((improving - none reported at this time)) Mental Status Examination Consciousness: Alert (Poor eye contact albeit improving) Orientation: x4, Person, Place, Date/Time, Situation Motor Activity: Other (short shuffling steps) Speech: Slow (improving) Language: Adequate Fund of Knowledge: Adequate Attention and Concentration: Adequate (Poor Eye contact (improving)) Memory: Immediate (intact), Recent (intact), Remote (intact) Mood: Appropriate ("good") Affect: Sad (Mood Incongruent, Dysphoric), Flat Thought Process & Associations: Intact, Logical, Goal directed, Linear Thought Content: Appropriate Hallucination Type: None Delusion Type: None Suicidal Ideation: Yes (Denies today) Suicidal Plan: No Suicidal Intention: No Homicidal Ideation: No Homicidal Plan: No Homicidal Intention: No Insight: Fair Judgment: Adequate Assessment and Plan - Assessment (1) Major depressive disorder, single episode, moderate Code(s): F32.1 - Major depressive disorder, single episode, moderate Status: Acute - Plan Plan: Patient depression is lifting, she denies suicidality and voices today. Scheduled to receive Zoloft 100mg at 0900 today. Discussed potential common side effects of Zoloft, the importance of compliance, healthy lifestyle choices including exercise and healthy diet to reduce weight gain secondary to SSRI, and importance of f/u with [facility] outpatient. Instructed patient to return to ED if she has increased LE Edema, Chest Pain, SOB, SI/HI, Auditory/Visual/Tactile Hallucinations, or Hypomanic/Manic Sx. F/u with [facility] outpatient for continued care. Discharge packet is being prepared by Dr. Kirkpatrick at this time for discharge later today to [facility]. Request Healthcare Surrogate/Guardian Advocate?: No
== END 2018-03-17 13:30 ==
LOC: NEPD 17:12 → NEDA 03-09 09:46 → H260 03-09 10:17 → H4EA 03-12 20:23
PROVIDERS: ADMIT Psychiatry & Neurology Psychiatry; ATTEND Psychiatry & Neurology Psychiatry